=== PATIENT | female | born 1950 | race Caucasian/White ===

== ENCOUNTER → 2020-03-04 13:12 | Outpatient (CLI) | payer MEDICARE, SELFPAY ==
--- NOTE | ~2020-03-04 | MM_ITS ---
EXAMINATION: MM screening claudio BI w candi HISTORY: Screening TECHNIQUE: Craniocaudal and mediolateral oblique 3-D tomosynthesis images were obtained and synthetic 2-D images were generated. CAD analysis was submitted and interpreted. COMPARISON: Comparison to multiple prior studies sequentially, with oldest reviewed study dated 04/30. BREAST PARENCHYMAL COMPOSITION: The breasts are heterogeneously dense, which may obscure small masses . FINDINGS: There is no evidence of suspicious mass, calcification, or architectural distortion to sugg est malignancy in either breast. There has been no suspicious interval change. IMPRESSION: 1. No mammographic evidence of malignancy. 2. Recommend routine screening mammography in one year. BI-RADS Category 1: Negative Reviewed, dictated and finalized at location A.
== END ==
PROVIDERS: PCP Internal Medicine; Visit Provider Obstetrics & Gynecology
DX: Z12.31 Encounter for screening mammogram for malignant neoplasm of breast (principal)
CPT/HCPCS: 77063; 77067

== ENCOUNTER → 2021-03-30 15:52 | Outpatient (CLI) | payer MEDICARE, SELFPAY ==
--- NOTE | ~2021-03-30 | MM_ITS ---
EXAMINATION: MM screening claudio BI w candi HISTORY: Screening TECHNIQUE: Craniocaudal and mediolateral oblique 3-D tomosynthesis images were obtained and synthetic 2-D images were generated. CAD analysis was submitted and interpreted. COMPARISON: Comparison to multiple prior studies sequentially, with oldest reviewed study dated 07/16. BREAST PARENCHYMAL COMPOSITION: The breasts are heterogenously dense, which may obscure small masses. FINDINGS: There is no evidence of suspicious mass, calcification, or architectural distortion to sugg est malignancy in either breast. There has been no suspicious interval change. IMPRESSION: 1. No mammographic evidence of malignancy. 2. Recommend routine screening mammography in one year. BI-RADS Category 1: Negative Reviewed, dictated and finalized at location A.
== END ==
PROVIDERS: PCP Internal Medicine; Visit Provider Obstetrics & Gynecology
DX: Z12.31 Encounter for screening mammogram for malignant neoplasm of breast (principal)
CPT/HCPCS: 77063; 77067

== ENCOUNTER → 2022-04-01 10:10 | Outpatient (CLI) | payer MEDICARE, SELFPAY ==
--- NOTE | ~2022-04-01 | MM_ITS ---
EXAMINATION: MM screening claudio BI w candi HISTORY: Screening TECHNIQUE: Craniocaudal and mediolateral oblique 3-D tomosynthesis images were obtained and synthetic 2-D images were generated. CAD analysis was submitted and interpreted. COMPARISON: No prior mammogram is available for comparison at this institution. BREAST PARENCHYMAL COMPOSITION: There are scattered areas of fibroglandular density. FINDINGS: There is no evidence of suspicious mass, calcification, or architectural distortion to sugg est malignancy in either breast. There has been no suspicious interval change. IMPRESSION: 1. No mammographic evidence of malignancy. 2. Recommend routine screening mammography in one year. BI-RADS Category 1: Negative Reviewed, dictated and finalized at location A.
== END ==
PROVIDERS: PCP Internal Medicine; Visit Provider Obstetrics & Gynecology
DX: Z12.31 Encounter for screening mammogram for malignant neoplasm of breast (principal)
CPT/HCPCS: 77063; 77067

== ENCOUNTER → 2023-01-24 10:48 | Outpatient (CLI) | payer MEDICARE, SELFPAY ==
--- NOTE | ~2023-01-24 | DEXA_ITS ---
Bone Density Report Name: POLLO MENDOZA Age: 72 Sex: Female Ethnicity: White Date of : 1950 Indication: postmenopausal; screening for osteoporosis; asthma or emphysema; Referring Provider: DMITRI, SALMA Study: Bone densitometry was performed. Exam Date: January 24, 2023 Accession number: [id number] Bone Density: Region BMD T-score Z-score Classification AP Spine (L1-L4) 0.925 -1.1 1.0 Osteopenia Femoral Neck (Left) 0.745 -0.9 0.9 Normal Total Hip (Left) 1.023 0.7 2.2 Normal Femoral Neck (Right) 0.791 -0.5 1.3 Normal Total Hip (Right) 0.984 0.3 1.9 Normal Total Hip Mean 1.004 0.5 2.1 Normal World Health Organization criteria for BMD impression classify patients as: Normal (T-score at or above -1.0), Osteopenia (T-score between -1.0 and -2.5), or Osteoporosis (T-score at or below -2.5). 10-year Fracture Risk(1): Major Osteoporotic Fracture 8.0% Hip Fracture 0.8% Reported Risk Factors: [place] (), Neck BMD=0.745, BMI=35.1 (1) FRAX(R) Version 3.08. Fracture probability calculated for an untreated patient. Fracture probability may be lower if the patient has received treatment. Previous Exams: Region Exam Age BMD T-score BMD Change BMD Change Date g/cm2 vs Baseline vs Previous AP Spine(L1-L4) 01/24/2023 72 0.925 -1.1 -0.061* -0.061* 02/19/2009 58 0.985 -0.6 Total Hip(Left) 01/24/2023 72 1.023 0.7 -0.056* -0.056* 02/19/2009 58 1.079 1.1 Total Hip(Right) 01/24/2023 72 0.984 0.3 -0.020 -0.020 02/19/2009 58 1.004 0.5 *Denotes significance at 95% confidence level, LSC for AP Spine = 0.022 g/cm2, LSC for Total Hip = 0.027 g/cm2 Clinical Information Provided by Patient: Has used the following medications: Vitamin D Has the following medical conditions: Asthma or Emphysema Patient maximum height was 65.5 Menopause Age: 57 No regular weight bearing exercise Drinks caffeinated beverages Onset of menses at age 14 Number of children 2 Impression: The patient has low bone mass, based on the Total Spine T-score. The patient has an estimated ten-year risk of hip fracture of 0.8% and an estimated ten-year risk of major fracture of 8%, based on the WHO FRAX algorithm. The BMD for the AP Spine(L1-L4) decreased, changing by -0.061 since the last DXA exam. The BMD for the Total Hip(Left) decreased, changing by -0.056 since the last DXA exam. Disc
== END ==
PROVIDERS: PCP Internal Medicine; Visit Provider Internal Medicine
DX: Z78.0 Asymptomatic menopausal state (principal); M85.88 Other specified disorders of bone density and structure, other site
CPT/HCPCS: 77080

== ENCOUNTER → 2023-04-04 07:00 | Outpatient (CLI) | payer MEDICARE, SELFPAY ==
--- NOTE | ~2023-04-04 | MM_ITS ---
EXAMINATION: MM screening claudio BI w candi HISTORY: Screening TECHNIQUE: Craniocaudal and mediolateral oblique 3-D tomosynthesis images were obtained and synthetic 2-D images were generated. CAD analysis was submitted and interpreted. COMPARISON: Comparison to multiple prior studies sequentially, with oldest reviewed study dated 01/06. BREAST PARENCHYMAL COMPOSITION: There are scattered areas of fibroglandular density. FINDINGS: There is no evidence of suspicious mass, calcification, or architectural distortion to sugg est malignancy in either breast. There has been no suspicious interval change. IMPRESSION: 1. No mammographic evidence of malignancy. 2. Recommend routine screening mammography in one year. BI-RADS Category 1: Negative Reviewed, dictated and finalized at location A. 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
== END ==
PROVIDERS: PCP Obstetrics & Gynecology; Visit Provider Internal Medicine
DX: Z12.31 Encounter for screening mammogram for malignant neoplasm of breast (principal)
CPT/HCPCS: 77063; 77067

== ENCOUNTER 2024-06-06 15:23 | Outpatient (CLI) | payer MEDICARE, SELFPAY ==
--- NOTE | ~2024-06-06 | MM_ITS ---
EXAMINATION: MM screening claudio BI w candi HISTORY: Screening TECHNIQUE: Craniocaudal and mediolateral oblique 3-D tomosynthesis images were obtained and synthetic 2-D images were generated. CAD analysis was submitted and interpreted. COMPARISON: Comparison to multiple prior studies sequentially, with oldest reviewed study dated 12/14. BREAST PARENCHYMAL COMPOSITION: Not dense: There are scattered areas of fibroglandular density. FINDINGS: There are stable benign-appearing bilateral breast calcifications. There is no evidence of suspicious mass, calcification, or architectural distortion to suggest malignancy in either breast. T here has been no suspicious interval change. IMPRESSION: 1. No mammographic evidence of malignancy. 2. Recommend routine screening mammography in one year. BI-RADS Category 2: Benign finding(s). Reviewed, dictated and finalized at location B. 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
== END 2024-06-06 15:24 | disposition home or self-care (01) ==
LOC: MICIMG 15:26
PROVIDERS: PCP Family Medicine; Visit Provider Obstetrics & Gynecology
DX: Z12.31 Encounter for screening mammogram for malignant neoplasm of breast (principal)
CPT/HCPCS: 77063; 77067

== ENCOUNTER 2024-09-17 14:10 | Outpatient (CLI) | payer MEDICARE, SELFPAY ==
--- NOTE | ~2024-09-17 | US_ITS ---
Pelvic ultrasound. Clinical History: Pelvic pain Technique: Realtime transabdominal and transvaginal scanning of the pelvis was performed. Color flow Doppler and Doppler spectral analysis were performed. Findings: The uterus is anteverted. The endometrial stripe has a thickness of 6 mm. No focal mass is identified. The right ovary is not visualized. No significant right ovarian or adnexal mass is seen. The left ovary measures 1.7 x 1.2 x 1.2 cm. No significant left ovarian or adnexal mass is seen. There is no evidence of free fluid in the cul de sac. Impression: Endometrium is upper limits of normal in thickness given patient age. Right ovary not visualized. Reviewed, dictated and finalized at location . Impression: Endometrium is upper limits of normal in thickness given patient age. Right ovary not visualized.
== END 2024-09-17 14:11 | disposition home or self-care (01) ==
LOC: MICIMG 14:12
PROVIDERS: PCP Family Medicine; Visit Provider Obstetrics & Gynecology
DX: R10.2 Pelvic and perineal pain (principal)
CPT/HCPCS: 76830; 76856

== ENCOUNTER 2024-09-19 14:43 | Outpatient (CLI) | payer MEDICARE, SELFPAY ==
[2024-09-19 15:49] LABS: Hemoglobin 13.9 g/dL (12.0-15.0); Mean Corpuscular HGB Conc 33.1 g/dl (32-36); Mean Corpuscular Hemoglobin 30.3 pg (26-34); Mean Corpuscular Volume 91.5 fl (80-100); Mean Platelet Volume 10.5 fl (7.4-10.4); Platelet Count Result 299 k/mm3 (150-375); Red Blood Count 4.59 M/mm3 (4.2-5.4); Red Cell Distribution Width 12.8 % (11.5-14.5); White Blood Count 7.7 K/mm3 (4.5-10.0)
[2024-09-19 16:06] LABS: Anion Gap 10 mmol/L (4-12); Blood Urea Nitrogen 9 mg/dL (7-17); Calcium 9.2 mg/dL (8.4-10.2); Carbon Dioxide 27 mmol/L (22-30); Chloride 107 mmol/L (98-107); Estimated Glomerular Filt Rate > 60; Glucose 96 mg/dL (65-110); Potassium 4.2 mmol/L (3.4-5.0); Sodium 144 mmol/L (137-145)
--- OUTSIDE RECORDS SUMMARY | 2024-09-19 16:50 | XMS_ITS | Clinical Summary ---
Author Organization [facility] [place] [address] Address [address] [place] [address] Care Team Providers Care Lens Edge Grinder Machine Name Role Phone Rohith Forbes MD Primary Care Provider [phone]- [phone] Allergies Active Allergy Reactions Criticality Noted Date Comments Carvedilol Itching Low 11/02/2022 Levofloxacin Other (See comments) Low 07/17/2019 Penicillamine Rash Medium 07/17/2019 Sulfa (Sulfonamide Antibiotics) Rash Medium 06/30 Medications atorvastatin (LIPITOR) 10 mg tablet 1 tablet (10 mg total) daily 07/10/2019 Active fluticasone furoate-vilante rol (BREO ELLIPTA) 100-25 mcg/dose diskus inhaler 1 puff daily Active montelukast (SINGULAIR) 10 mg tablet 1 tablet daily 05/29/2019 Active olmesartan-hydr ochlorothiazide (BENICAR HCT) 40-12.5 mg per tablet 1 tablet daily 05/24/2019 Active omeprazole (PriLOSEC) 20 mg capsule 1 capsule (20 mg total) daily 07/10/2019 Active albuterol HFA (ProAir HFA) 90 mcg/actuation inhaler 2 puffs every 8 hours Active cetirizine (ZyrTEC) 10 mg tablet Take 1 tablet (10 mg total) by mouth daily Active multivitamin capsule Take 1 capsule by mouth daily Active cholecalciferol (VITAMIN D-3) 5,000 unit capsule Take 5,000 Units by mouth daily Active furosemide (LASIX) 20 mg tablet Take 1 tablet (20 mg total) by mouth daily as needed 10/19/2022 Active metoprolol XL (TOPROL-XL) 25 mg extended release tablet TAKE 1/2 TABLET BY MOUTH EVERY DAY IN THE MORNING 10/19/2022 Active irbesartan (AVAPRO) 300 mg tablet 09/02/2022 Active Active Problems Problem Noted Date Diagnosed Date Abnormal electrocardiogram 07/17/2019 Medical History Medical History Date Comments Hypertension Hyperlipidemia Family History Relation Name Status Comments Father (Age 86) STROKE Mother Alive Social History Tobacco Use Types Packs/Day Years Used Date Smoking Tobacco: Never Smokeless Tobacco: Never Tobacco Cessation:Counseling Given: Not Answered Alcohol Use Standard Drinks/Week Comments Never 0 (1 standard drink = 0.6 oz pur e alcohol) AUDIT-C Answer Date Recorded Frequency of Alcohol Consumption Never 07/17/2019 Average Number of Drinks Not on file 020 Frequency of Binge Drinking Not on file 06/30 Personal Safety Answer Date Recorded Getting School Help Needed Not on file 07/30 Comments Unknown Sex and Gender Information Value Date Recorded Sex Assigned at Not on file 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 Gender Identity Not on file Sexual Orientation Not on file Obstetrics History Last Filed Vital Signs Vital Sign Reading Time Taken Comments Blood Pressure 138/90 11/02/2022 11:14 AM CDT Pulse 104 11/02/2022 11:14 AM CDT Temperature - - Respiratory Rate - - Oxygen Saturation 95% 11/02/2022 11:14 AM CDT Inhaled Oxygen Concentration - - Weight 97.5 kg (215 lb) 11/02/2022 11:14 AM CDT Height 165.1 cm (5' 5 ) 11/02/2022 11:14 AM CDT Body Mass Index 35.78 11/02/2022 11:14 AM CDT Plan of Treatment Health Maintenance Due Date Last Done Comments Breast Cancer Screening-Mammogram 1950 Colon Cancer Screening-Colonoscopy 1950 Depression Screening 1950 Fall Risk Assessment 1950 Hepatitis C Screening 1950 Hepatitis B Screening 1970 Well Visit 65+ 2017 Pneumococcal vaccine 65+ (2 of 2 - PPSV23) 11/19/2020 09/24/2020, 09/25/2019 Osteoporosis Screening-Bone Density Scan 05/24/2021 05/24/2019 Influenza Vaccine (#1) 2024 0, 02/27/2019, 03/17/2018, Additional history exists DTaP/Tdap/Td Vaccine (2 - Td or Tdap) 09/24/2029 09/25/2019 Zoster Vaccine Completed 07/14/2018, 06/30, 01/24/2018 Insurance [employer] MEDICARE SUPPLEMENT INSURANCE MEDICARE Care Teams Lens Edge Grinder Machine Relationship Specialty Start Date End Date Rohith Forbes MD [address] [facility] [address] [place] [address] PCP - General Internal Medicine 06/08/19
--- OUTSIDE RECORDS SUMMARY | 2024-09-19 16:50 | XMS_ITS | Referral Summary ---
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 [address] [place] [address] PCP - General Internal Medicine 06/08/19
--- OUTSIDE RECORDS SUMMARY | 2024-09-19 16:50 | XMS_ITS | Clinical Summary ---
Author Organization [facility] Address [address] [place] [id number] Care Team Providers Care Supervisor Drying And Softening Name Role Phone Jackson Greenfield MD Primary Care Provider [phone] Allergies Active Allergy Reactions Criticality Noted Date Comments Carvedilol Itching Low 11/02/2022 Cephalosporins Itching 08/22/2024 Levofloxacin Other (see comment) Low 07/17/2019 Penicillamine Rash Medium 07/17/2019 Sulfa Antibiotics Rash Medium 07/17/2019 Medications ondansetron (ZOFRAN-ODT) 4 MG disintegrating tabletIndications:E pigastric pain Take 1 tablet (4 mg total) by mouth every 8 (eight) hours as needed for Nausea. 12 tablet 5 Active nitrofurantoin, macrocrystal-monohy drate, (MACROBID) 100 MG capsule Take 1 capsule (100 mg total) by mouth 2 (two) times daily for 7 days. 14 capsule 5 08/30/19 25 Encounters Date Type Department Care Team Description 08/22/2024 8:40 PM CDT - 08/22/2024 11:32 PM CDT Emergency [facility] [place] [address] Vita Wood DO Vomiting; Abdominal Pain Discharge Disposition: Home or Self Care (Routine Discharge) 08/22/2024 Travel from Last 3 Months Social History Tobacco Use Types Packs/Day Years Used Date Smoking Tobacco: Never Smokeless Tobacco: Never Tobacco Cessation:Counseling Given: Not Answered Comments Unknown Sex and Gender Information Value Date Recorded Sex Assigned at Female 08/22/2024 7:48 PM CDT Legal Sex Female 7:41 PM [employer] Gender Identity Not on file Sexual Orientation Not on file Last Filed Vital Signs Vital Sign Reading Time Taken Comments Blood Pressure 144/95 08/22/2024 10:15 PM CDT Pulse 105 08/22/2024 7:43 PM CDT Temperature 37 C (98.6 F) 08/22/2024 7:43 PM CDT Respiratory Rate 18 08/22/2024 7:43 PM CDT Oxygen Saturation 92% 08/22/2024 10:15 PM CDT Inhaled Oxygen Concentration - - Weight 98.4 kg (217 lb) 08/22/2024 7:43 PM CDT Height 165.1 cm (5' 5 ) 08/22/2024 7:43 PM CDT Body Mass Index 36.11 08/22/2024 7:43 PM CDT Plan of Treatment Health Maintenance Due Date Last Done Comments Colorectal Cancer Screening Colonoscopy (10 Years) 1952 Hepatitis C 1970 DTaP, Tdap and Td Vaccines (1 - Tdap) 1971 Mammogram Screening 1992 Pneumococcal Vaccine: 50+ Years (1 of 1 - PCV) 2002 Annual Medicare Wellness Visit 2017 Dexa Scan (General) 2017 COVID-19 Vaccine ( season) 2024 04/18/2022, 04/21/2021, 08/11/2020, Additional history exists RSV Immunization or 60+ Years (1 - 1-dose 75+ series) 2027 Zoster Vaccines Completed 07/14/2018, 01/24/2018 Meningococcal B Vaccine Aged Out No l onger eligible based on patient's age to complete this topic Meningococcal Vaccine Aged Out No toma lukas eligible based on patient's age to complete this topic RSV Immunizations Under 20 Months Aged Out No longer eligible based on patient's age to complete this topic Procedures Procedure Name Priority Date/Time Associated Diagnosis Comments CT ABD+PEL W CON STAT 08/22/2024 9:23 PM CDT HC URINALYSIS AUTO W/O MICRO STAT 08/22/2024 9:00 PM CDT LACTIC ACID W REFLEX (SEPSIS) STAT 08/22/2024 8:53 PM CDT LIPASE STAT 08/22/2024 8:53 PM CDT COMPREHENSIVE METABOLIC PANEL STAT 08/22/2024 8:53 PM CDT CBC W/DIFF AUTOMATED STAT 08/22/2024 8:53 PM CDT from Last 3 Months Results * CT ABD+PEL W IV CON ONLY (08/22/2024 9:23 PM CDT) Anatomical Region Laterality Modality Abdomen Computed Tomogra phy 08/22/2024 9:32 PM CDT Impressions 08/22/2024 9:54 PM CDT IMPRESSION: 1. Moderate hiatal hernia, with the gastric fundus and proximal gastric body in subdiaphragmatic position and the distal gastric body/antrum in the hernia. Liquid present in the distal esophagus and proximal stomach, with mild gaseous distention of the herniated distal gastric body and essentially evacuated gastric antrum/proximal small bowel. Overall pattern could represent gastric outlet obstruction in the hernia. 2. Trace urothelial enhancement present in the urinary bladder could represent acute cystitis. Recommend correlation with urinalysis. 3. Colonic diverticulosis. 4. Cholelithiasis. 5. Endometrium is in excess of normal limits for patient age, measuring up to 1.1 cm. Recommend nonemergent further evaluation with sonography to exclude malignancy. Referred By: Interpreted By: Seun Alas MD, 08/22/2024 9:32 PM Narrative 08/22/2024 9:54 PM CDT [facility] [address] [place], [place] [address] INDICATION: Abdominal pain COMPARISON: None TECHNIQUE: CT images of the abdomen and pelvis were obtained following the administration of IV contrast. Radiation dose reduction technique utilized. FINDINGS: Limited visualization of the lower thorax reveals lung bases free of consolidation. Moderate hiatal hernia, with a partially intrathoracic stomach including the distal gastric body as well as the antrum. Liquid is present in the somewhat dilated distal esophagus. Gastric contents in the proximal gastric body and gastric fundus appear within normal limits. Mild gaseous distention of the distal gastric body, with the antrum and proximal duodenum evacuated. Stool is present in the colon and rectum. Diverticulosis, most pronounced in the descending and sigmoid colon. Small bowel is mostly evacuated. Normal size liver. No suspicious hepatic lesion. Cholelithiasis. Main portal vein, splenic vein, SMV, and SMA enhance. Mild atherosclerosis of the abdominal and pelvic vasculature. No retroperitoneal lymphadenopathy. No free gas in the abdomen or pelvis. No mesenteric lymphadenopathy. Normal size spleen. Incidental note of a small splenule. Pancreas within normal limits. Adrenal glands within normal limits. Kidneys enhance symmetrically. Benign-appearing renal cystic foci for which no further follow-up is recommended. No hydronephrosis or hydroureter. Urinary bladder is in postvoid state, limiting evaluation of the wall; trace urothelial enhancement present. Endometrium is in excess of normal limits for patient age, measuring up to 1.1 cm. Incidental note of benign pelvic phleboliths. No pelvic lymphadenopathy or significant free fluid. Chronic degenerative changes of the hips, pubic symphysis, and sacroiliac joints. Chronic multilevel degenerative changes of the spine. Visualized body wall exhibits no acute abnormality. Procedure Note Seun Alas MD - 08/22/[address] [address] INDICATION: Abdominal pain COMPARISON: None TECHNIQUE: CT images of the abdomen and pelvis were obtained following theadministration of IV contrast. Radiation dose reduction techniqueutilized. FINDINGS: Limited visualization of the lower thorax reveals lung bases free ofconsolidation. Moderate hiatal hernia, with a partially intrathoracic stomach includingthe distal gastric body as well as the antrum. Liquid is present in thesomewhat dilated distal esophagus. Gastric contents in the proximalgastric body and gastric fundus appear within normal limits. Mild gaseousdistention of the distal gastric body, with the antrum and proximalduodenum evacuated. Stool is present in the colon and rectum. Diverticulosis, most pronouncedin the descending and sigmoid colon. Small bowel is mostly evacuated. Normal size liver. No suspicious hepatic lesion. Cholelithiasis. Mainportal vein, splenic vein, SMV, and SMA enhance. Mild atherosclerosis of the abdominal and pelvic vasculature. Noretroperitoneal lymphadenopathy. No free gas in the abdomen or pelvis. No mesenteric lymphadenopathy.Normal size spleen. Incidental note of a small splenule. Pancreas withinnormal limits. Adrenal glands within normal limits. Kidneys enhance symmetrically. Benign-appearing renal cystic foci forwhich no further follow-up is recommended. No hydronephrosis orhydroureter. Urinary bladder is in postvoid state, limiting evaluation of the wall;trace urothelial enhancement present. Endometrium is in excess of normal limits for patient age, measuring up to1.1 cm. Incidental note of benign pelvic phleboliths. No pelviclymphadenopathy or significant free fluid. Chronic degenerative changes of the hips, pubic symphysis, and sacroiliacjoints. Chronic multilevel degenerative changes of the spine. Visualized body wall exhibits no acute abnormality. IMPRESSION: 1. Moderate hiatal hernia, with the gastric fundus and proximal gastricbody in subdiaphragmatic position and the distal gastric body/antrum inthe hernia. Liquid present in the distal esophagus and proximal stomach,with mild gaseous distention of the herniated distal gastric body andessentially evacuated gastric antrum/proximal small bowel. Overall patterncould represent gastric outlet obstruction in the hernia. 2. Trace urothelial enhancement present in the urinary bladder couldrepresent acute cystitis. Recommend correlation with urinalysis. 3. Colonic diverticulosis. 4. Cholelithiasis. 5. Endometrium is in excess of normal limits for patient age, measuringup to 1.1 cm. Recommend nonemergent further evaluation with sonography toexclude malignancy. Referred By: Interpreted By: Seun Alas MD, 08/22/2024 9:32 PM Branden Eng PA-C CT Final Resul t * (ABNORMAL) URINALYSIS (08/22/2024 9:00 PM CDT) SPECIMEN TYPE URINE CLEAN CATCH 08/22/2024 9:01 PM CDT [facility] COLOR (U) LIGHT YELLOW 08/22/2024 9:15 PM CDT [facility] TRANSPARENCY CLEAR 08/22/2024 9:15 PM CDT [facility] SPECIFIC GRAVITY (U) 1.021 1.001 - 1.030 08/22/2024 9:15 PM CDT [facility] U PH 7.0 5.0 - 9.0 08/22/2024 9:15 PM CDT [facility] LEUKOCYTES (U) 75(A) NEGATIVE 08/22/2024 9:15 PM CDT [facility] NITRITES 1+(A) NEGATIVE 08/22/2024 9:15 PM CDT [facility] PROTEIN RANDOM (U) NEGATIVE <30 MG/DL 08/22/2024 9:15 PM CDT [facility] GLUCOSE (U) NORMAL NORMAL MG/DL 08/22/2024 9:15 PM CDT [facility] KETONES MG/DL (U) 20(A) NEGATIVE MG/DL 08/22/2024 9:15 PM CDT [facility] UROBILINOGEN NORMAL NORMAL MG/DL 08/22/2024 9:15 PM CDT [facility] BILIRUBIN (U) NEGATIVE NEGATIVE MG/DL 08/22/2024 9:15 PM CDT [facility] BLOOD (U) NEGATIVE NEGATIVE 08/22/2024 9:15 PM CDT [facility] WBC/HPF 6(H) <6 /HPF 08/22/2024 9:15 PM CDT [facility] RBC/HPF 7(H) <6 /HPF 08/22/2024 9:15 PM CDT [facility] SQUAMOUS EPITHELIALS RARE /HPF 08/22/2024 9:15 PM CDT [facility] URINE SPECIMEN OBTAINED BY CLEAN CATCH PROCEDURE / Unknown 08/22/2024 9:00 PM CDT us Branden Eng PA-C URINE ORDERABLES Final Resu lt Performing Organization Address City/[facility]/ZIP Co de Phone Number [facility] [address] [place] [address], [place] [phone] * LACTIC ACID W REFLEX (SEPSIS) (08/22/2024 8:53 PM CDT) LACTIC ACID VENOUS 1.1 0.4 - 2.0 MMOL/L 08/22/2024 9:30 PM CDT [facility] 08/22/2024 8:53 PM CDT Branden Eng PA-C LABORATORY Final Resul t Performing Organization Address [facility] Co de Phone Number [facility] [address] [place] [address], [place] [phone] * (ABNORMAL) COMPREHENSIVE METABOLIC PANEL (08/22/2024 8:53 PM CDT) GLUCOSE 128(H) 70 - 99 MG/DL 08/22/2024 9:30 PM CDT [facility] BUN 11 7 - 18 MG/DL 08/22/2024 9:30 PM CDT [facility] CREATININE S/P/B 0.92 0.55 - 1.02 MG/DL 08/22/2024 9:30 PM CDT [facility] SODIUM S/P/B 139 136 - 145 MMOL/L 08/22/2024 9:30 PM CDT [facility] POTASSIUM S/P/B 3.8 3.5 - 5.1 MMOL/L 08/22/2024 9:30 PM CDT [facility] CHLORIDE S/P/B 107 97 - 115 MMOL/L 08/22/2024 9:30 PM CDT [facility] CO2 24.9 21 - 32 MMOL/L 08/22/2024 9:30 PM CDT [facility] CALCIUM S/P/B 10.1 8.5 - 10.1 MG/DL 08/22/2024 9:30 PM CDT [facility] BILIRUBIN TOTAL S/P/B 0.5 0.2 - 1.2 MG/DL 08/22/2024 9:30 PM CDT [facility] Comment: THIS ASSAY IS NOT RECOMMENDED FOR PATIENTS UNDERGOING TREATMENT WITH ELTROMBOPAG DUE TO THE POTENTIAL FOR FALSELY ELEVATED RESULTS. TOTAL PROTEIN S/P/B 7.7 6.4 - 8.2 G/DL 08/22/2024 9:30 PM CDT [facility] ALBUMIN S/P/B 4.1 3.4 - 5.0 G/DL 08/22/2024 9:30 PM CDT [facility] AST 20 15 - 37 U/L 08/22/2024 9:30 PM CDT [facility] ALT 32 14 - 55 U/L 08/22/2024 9:30 PM CDT [facility] ALKALINE PHOSPHATASE S/P/B 101 50 - 136 U/L 08/22/2024 9:30 PM CDT [facility] ANION GAP 7.1 2 - 10 MMOL/L 08/22/2024 9:30 PM CDT [facility] BUN CREATININE RATIO 11.9 - 08/22/2024 9:30 PM CDT [facility] A/G RATIO 1.1 1.0 - 2.0 RATIO 08/22/2024 9:30 PM CDT [facility] GFR ESTIMATE 66(L) >90 ML/MIN/1.7 3 M2 08/22/2024 9:30 PM CDT [facility] Comment: NOTE: eGFR is not calculated for patients <18 years of age or gender unknown. This is an estimated GFR calculation using the new CKD EPI creatinine equation without race and so does not require a correction factor for race. This estimated GFR should not be used for calculating drug doses. 08/22/2024 8:53 PM CDT us Branden Eng PA-C LABORATORY Final Resul t [facility] [address] [place] [address], [place] [phone] * (ABNORMAL) CBC W/DIFF AUTOMATED (08/22/2024 8:53 PM CDT) WBC 14.84(H) 4.5 - 11.0 x10'3/uL 08/22/2024 9:16 PM CDT [facility] RBC 5.25 4.20 - 5.40 x10'6/uL 08/22/2024 9:16 PM CDT [facility] HGB 15.5 12.0 - 16.0 G/DL 08/22/2024 9:16 PM CDT [facility] HCT 46.2 38.0 - 48.0 % 08/22/2024 9:16 PM CDT [facility] MCV 88.0 81.0 - 99.0 FL 08/22/2024 9:16 PM CDT [facility] MCH 29.5 27.0 - 31.0 PG 08/22/2024 9:16 PM CDT [facility] MCHC 33.5 32.0 - 36.0 G/DL 08/22/2024 9:16 PM CDT [facility] RDW 12.7 11.5 - 14.5 % 08/22/2024 9:16 PM CDT [facility] PLT 339 130 - 400 x10'3/uL 08/22/2024 9:16 PM CDT [facility] MPV 10.0 9.3 - 12.2 FL 08/22/2024 9:16 PM CDT [facility] DIFFERENTIAL TYPE AUTOMATED DIFFERENTIAL 08/22/2024 9:16 PM CDT [facility] NEUTROPHILS % 84.7 % 08/22/2024 9:16 PM CDT [facility] LYMPHOCYTES % 10.4 % 08/22/2024 9:16 PM CDT [facility] MONOCYTES % 3.8 % 08/22/2024 9:16 PM CDT [facility] EOSINOPHILS 0.3 % 08/22/2024 9:16 PM CDT [facility] BASOPHILS 0.5 % 08/22/2024 9:16 PM CDT [facility] IMMATURE GRANS % 0.3 % 08/23/19 9:16 PM CDT [facility] ABS. NEUTROPHILS 12.56(H) 1.80 - 7.70 x10'3/uL 08/22/2024 9:16 PM CDT [facility] ABS. LYMPHOCYTES 1.54 1.00 - 4.80 x10'3/uL 08/22/2024 9:16 PM CDT [facility] ABS. MONOCYTES 0.57 0.24 - 0.86 x10'3/uL 08/22/2024 9:16 PM CDT [facility] ABS. EOSINOPHILS 0.04 0.04 - 0.36 x10'3/uL 08/22/2024 9:16 PM CDT [facility] ABS. BASOPHILS 0.08 0.01 - 0.08 x10'3/uL 08/22/2024 9:16 PM CDT [facility] ABS. IMMATURE GRANULOCYTES 0.05 0.00 - 0.49 x10'3/uL 08/22/2024 9:16 PM CDT [facility] 08/22/2024 8:53 PM CDT Branden Eng PA-C LABORATORY Final Resul t [facility] [address] [place] [address], [place] [phone] * LIPASE (08/22/2024 8:53 PM CDT) LIPASE 59 13 - 75 UNITS/L 08/22/2024 9:30 PM CDT [facility] 08/22/2024 8:53 PM CDT Branden Eng PA-C LABORATORY Final Resul t Performing Organization Address [facility] Co de Phone Number [facility] [address] [place] [address], [place] [phone] from Last 3 Months Insurance MEDICARE Care Teams Supervisor Drying And Softening Relationship Specialty Start Date End Date Jackson Greenfield MD [address] [place] [address] PCP - General FAMILY PRACTICE 08/22/24
--- OUTSIDE RECORDS SUMMARY | 2024-09-19 16:50 | XMS_ITS | Data Portability ---
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 Studies ordered as below. Discussed plan with patient/careg iver, who expressed understanding . Follow up as noted below. Not available 05/04/2022 15:58:58 07/12/2022 07/12/2022 Patient presented for follow up. Studies ordered as below. Discussed plan with patient/careg iver, who expressed understanding . Follow up as noted below. Not available 07/12/2022 10:30:55 10/19/2022 10/19/2022 Patient presented for follow up. Studies ordered as below. Discussed plan with patient/careg iver, who expressed understanding . Follow up as noted below. [email or web address] Not available 10/19/2022 09:25:56 06/06/2023 06/06/2023 Patient presented for follow up. Studies ordered as below. Discussed plan with patient/careg iver, who expressed understanding . Follow up as noted below. [email or web address] Not available 06/06/2023 16:45:38 Plan of Treatment Reminders Order Date Submit Date Provider Last Modified By Organization Details Last Modified Time Details Appointments None recorded. Lab lipid panel w/ direct LDL, serum 2023 024 [facility] [employer] [facility], [address], [place], [address], 04:03:15 TSH, serum or plasma 2023 024 [facility], [address], [address], [place], [address], 4 04:03:16 CMP, serum or plasma 2023 024 [facility], [address], [address], [place], [address], 4 04:03:15 CBC w/ auto diff 2023 024 [facility], [address], [address], [place], [address], 4 04:03:15 HbA1c (hemoglobi n A1c), blood 2023 024 [employer] [employer] [facility], [address], [address], [place], [address], 4 04:04:42 vitamin D, 25-hydroxy , total, serum 2023 024 [facility], [address], [address] [place], [place], [address], 4 04:03:16 CMP, serum or plasma 2022 023 [facility], [address], [address], [place], [address], 3 05:42:10 CBC w/ auto diff 2022 023 [facility], [address], [address], [place], [address], 3 05:41:47 noninvasiv e colorectal cancer DNA + occult blood screening, QL, stool 2022 023 [employer] (Cologuard Orders Only), [address], [address], [place], [address], 3 13:23:13 lipid panel w/ direct LDL, serum [address] [facility], [address], [address], [place], [address], 3 05:28:03 TSH, serum or plasma [address] [facility], [address], [address], [place], [address], 3 10:01:51 HbA1c (hemoglobi n A1c), blood [address] [address] [facility], [facility] [address], [address], [place], [address], 3 10:01:52 CMP, serum or plasma [address] [facility], [facility], [place], [address], 3 03:46:55 CBC w/ auto diff [address] [facility], [facility] [address], [address], [place], [address], 3 03:46:56 vitamin D, 25-hydroxy , total, serum [address] [facility], [address], [address], [place], [address], 3 03:46:57 ESR (erythrocy te sedimentat ion rate), blood [address], [place], [address], 2 12:19:12 magnesium, serum or plasma 2021 022 [facility] [employer] [facility], [address], [address], [place], [address], 5 09:12:45 D-dimer, quant, plasma 2021 022 [facility] [employer] [facility], [address], [address], [place], [address], 5 09:12:45 Referral optometris t referral 2023 024 [facility], [address] [place], [address], 4 04:02:06 optometris t referral 2022 023 [facility], [address] [place], [address], 3 05:35:15 optometris t referral 2022 023 [facility], [address] [place], [address], 3 05:21:[address] referral 2022 023 [place] Moiz Garner MD, [address], [place], [address], 3 09:03:04 optometris t referral 2022 023 [facility], [address] [place], [address], 5 11:38:31 Procedures None recorded. Surgeries None recorded. Imaging electrocar diogram 2023 024 [facility], [facility], [address], [place], [address], 4 17:58:05 XR, chest, 2 view 2023 024 [facility], [address], [address], [place], [address], 4 04:04:55 bone density 2022 023 [facility], [address], [place], [address], 3 10:17:35 bone density 2022 023 [facility], [address], [place], [address], 3 05:27:46 electrocar diogram 2021 022 [facility], [facility], [address], [place], [address], 2 17:12:27 Medication Orders doxycyclin e hyclate 100 mg capsule 2023 024 [facility] [id number] [facility], [address] [place] [address], [place], [address], 4 18:42:38 benzonatat e 100 mg capsule 2023 024 [facility] [id number] [facility], [address] [place] [address], [place], [address], 4 18:42:42 prednisone 20 mg tablet 2023 024 [facility] [id number] [facility], [address] [place] [address], [place], [address], 4 17:43:44 nebivolol 2.5 mg tablet 2022 023 [facility] [address] [facility], [address] [place] [address], [place], [address], 3 18:40:32 furosemide 20 mg tablet 2022 023 [facility] [address] [facility], [address], [place], [address], 10:03:50 Coreg 6.25 mg tablet 2021 022 [facility] [id number] [facility], [address], [place], [address], 11:08:14 Patient TargetsNo targets recorded. Patient Instructions Encounter Date Encounter Id Patient Instructions Last Modified By Organization Details Last Modified Time 05/04/2022 [id number] headache: care instructions mshenouda Not available 05/04/2022 16:40:35 07/12/2022 [id number] mammogram: about this test mshenouda Not available 07/12/2022 11:11:28 palpitations: care instructions mshenouda Not available 07/12/2022 11:11:28 controlling your asthma: care instructions mshenouda Not available 07/12/2022 11:11:27 learning about asthma mshenouda Not available 07/12/2022 11:11:27 body mass index: care instructions mshenouda Not available 07/12/2022 11:11:28 learning about healthy weight mshenouda Not available 07/12/2022 11:11:27 10/19/2022 [id number] mammogram: about this test mshenouda Not available 10/19/2022 10:02:12 controlling your asthma: care instructions mshenouda Not available 10/19/2022 10:02:12 learning about asthma mshenouda Not available 10/19/2022 10:02:12 body mass index: care instructions mshenouda Not available 10/19/2022 10:02:11 learning about healthy weight mshenouda Not available 10/19/2022 10:02:11 01/19/2023 [id number] mammogram: about this test mshenouda Not available 01/19/2023 13:23:09 controlling your asthma: care instructions mshenouda Not available 01/19/2023 13:23:09 learning about asthma mshenouda Not available 01/19/2023 13:23:08 spirometry testing* RUFINO Not available 01/19/2023 14:23:46 body mass index: care instructions mshenouda Not available 01/19/2023 13:23:09 learning about healthy weight mshenouda Not available 01/19/2023 13:23:09 living will mshenouda Not available 12/29 13:18:07 06/06/2023 [id number] mammogram: about this test mshenouda Not available 06/06/2023 17:43:38 controlling your asthma: care instructions mshenouda Not available 06/06/2023 17:43:37 learning about asthma mshenouda Not available 06/06/2023 17:43:37 upper respirator y infection (cold): care instructions mshenouda Not available 06/06/2023 17:43:37 body mass index: care instructions mshenouda Not available 06/06/2023 17:43:37 learning about healthy weight mshenouda Not available 06/06/2023 17:43:36 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 Referring Physician: Rohith Rizvi, Internal Medicine, Encounter Date: 07/12/2022 Occupational Health Physician Referral for Galen ign hypertension Referring Physician: Rohith Rizvi Internal Medicine, Encounter Date: 07/12/2022 Occupational Health Physician Referral for Galen ign hypertension Referring Physician: Rohith Rizvi Internal Medicine, Encounter Date: 10/19/2022 Occupational Health Physician Referral for Galen ign hypertension Referring Physician: Rohith Rizvi Internal Medicine, Encounter Date: 01/19/2023 Occupational Health Physician Referral for Galen ign hypertension Referring Physician: Rohith Rizvi Internal Medicine, Encounter Date: 06/06/2023 Results Created Date Observation Date Name Description Value Unit Range Abnormal Flag Note LastModifiedBy Organization Detail LastModifiedTime 05/04/20 22 05/04/2022 HS D DIMER hs D dimer 397 NG{fe u}/mL 0-500 D-Dim er value s less than or equal to 500 ng/mL FEU have a negat simba predi ctive value of >95% for exclu mary jo of deep vein throm bosis and pulmo nary embol ism. In patie nts over 50 (who tend to have highe r elizabeth l basel ine D-Dim er value s), recen t studi es sugge st age-a djust ed D-Dim er cutof f value s (calc ulate d as: age [year s] x 10 ng/mL ) resul t in equiv alent outco mes and no addit ional false negat simba findi ngs. Not Available [facility] (Lab) [address] [facility], [place], [address], 05/04/2022 22:03:43 05/04/20 22 05/04/2022 ERYTH ROCYT E SEDIM ENTAT ION RATE (ESR) sed rate 17 mm/HR 0-20 Not Available [facility] (Main Location) [facility] [address] ,[place], [address], 05/05/2022 12:19:12 05/04/20 22 05/04/2022 MAGNE SIUM magnesium 2.1 mg/dL 1.6-2. 4 Not Available [facility] (Main Location) [facility] [address] ,[place], [address], 05/05/2022 12:19:13 10/28/19 23 10/28/2022 LIPID PANEL , STAND KATE cholesterol, total 147 mg/dL <200 normal Not Available [employer] [address] [address] [place], [address], 10/28/2022 10:01:50 10/28/19 23 10/28/2022 LIPID PANEL , STAND KATE HDL cholesterol 47 mg/dL > or = 50 low Not Available [employer] [address] [address] [place], [address], 10/28/2022 10:01:50 10/28/19 23 10/28/2022 LIPID PANEL , STAND KATE triglyceride s 111 mg/dL <150 normal Not Available [employer] [address] [address] [place], [address], 10/28/2022 10:01:50 10/28/19 23 10/28/2022 LIPID PANEL , STAND KATE LDL-choleste rol 79 mg/dL _(adama c) normal Refer ence range : <100 Chinmay able range <100 mg/dL for prima ry preve ntion ; <70 mg/dL for patie nts with CHD or diabe tic patie nts with > or = 2 CHD risk facto rs. LDL-C is now calcu lated using the Janae n-Hop kins calcu ginger n, which is a valid ated novel metho d provi ding jessa r accur acy than the Fried lizzette equat ion in the estim ation of LDL-C . Janae kim SS et al. KARLI. 2013; 310(1 9): 2061- 2068 (http ://ed ucati on.Qu chauShip It Bag Check. [employer]/f aq/FA Q164) Not Available [employer] [address], [address], 10/28/2022 10:01:50 10/28/19 23 10/28/2022 LIPID PANEL , STAND KATE chol/HDLC ratio 3.1 (calc ) <5.0 normal Not Available [address], [address], 10/28/2022 10:01:50 10/28/19 23 10/28/2022 LIPID PANEL , STAND KATE non HDL cholesterol 100 mg/dL _(adama c) <130 normal For patie nts with diabe suad plus 1 major ASCVD risk facto r, treat ing to a non-H DL-C goal of <100 mg/dL (LDL- C of <70 mg/dL ) is tereso johnson optio n. Not Available [employer] [address], [address], 10/28/2022 10:01:50 10/28/19 23 10/28/2022 TSH TSH 1.16 mIU/L 0.40-4 .50 normal Not Available [employer] [address], [address], 10/28/2022 10:01:51 10/28/19 23 10/28/2022 HEMOG LOBIN A1C hemoglobin A1C 5.5 %_of_ total _HGB <5.7 normal For the purpo se of frankie angel for the prese nce of diabe suad: <5.7% Consi stent with the absen ce of diabe suad 5.7-6 .4% Consi stent with incre ased risk for diabe suad (pred iabet es) > or =6.5% Consi stent with diabe suad This assay resul t is consi stent with a decre ased risk of diabe suad. Curre ntly, no conse nsus exist s regtheresa torrez use of hemog lobin A1c for diagn osis of diabe suad in child rubina. Accor ding to Ameri can Diabe suad Assoc iatio n (ADA) guide lines , hemog lobin A1c <7.0% repre sents optim al contr ol in non-p regna nt diabe tic patie nts. Diffe rent metri cs may apply to speci fic patie nt popul ation s. Stand ards of Medic al Care in Diabe suad(A DA). Not Available [employer] [address] [address] [place], [address], 10/28/2022 10:01:52 01/20/20 23 01/19/2023 anna metry testi ng* Spirometry Not Available [facility], [facility] [address], [place], [address], 01/19/2023 13:13:33 05/04/20 22 06/08/2022 elect rocar diogr am No observ ation record ed. [facility], [facility] [address], [place], [address], 07/12/2022 10:59:50 05/04/20 22 05/04/2022 elect rocar diogr am No observ ation record ed. [facility], [facility] [address], [place], [address], 07/12/2022 10:59:50 01/20/2001/19/2023 anna metry testi ng* No observ ation record ed. [email or web address] [facility], [facility] [address], [place], [address], 01/24/2023 19:08:16 01/29/20 23 01/24/2023 bone densi ty No observ ation record ed. [facility] [address], [place], [address], 01/28/2023 19:15:50 04/04/2004/04/2023 MAMMO , scree jeanne, tomos ynthe sis, bilat eral No observ ation record ed. [facility] [address], [place], [address], 04/04/2023 15:12:24 06/06/19 24 06/06/2023 elect alli floyd am No observ ation record ed. [email or web address] [facility], [facility] [address], [place], [address], 06/06/2023 17:58:05 Result Notes None recorded. Problems Name Problem SNOMED Code Status Onset Date Resolution Date Notes Provider Name and Address Organization Details Recorded Time Body mass index 30+ - obesity 837571098 Active 2018 Not Available [facility] 3 12:57:50 Benign hypertensi on 81439732 Active 2018 Not Available [facility] 12:57:50 Mixed hyperlipid emia 495464491 Active 2018 Not Available [facility] 3 12:57:51 Gastroesop hageal reflux disease without esophagiti s 980710095 Active 2018 Not Available [facility] 3 12:57:50 Asthma 987350477 Active 2018 Not Available [facility] 3 12:57:50 Menopause Active 2018 Not Available [facility] 3 12:57:50 Osteopenia 729067589 Active 2019 Not Available [facility] 3 12:57:51 Vitamin D deficiency 74465363 Active 2019 Not Available [facility] 3 12:57:51 Onychomyco sis of toenails 033171195 Active 2020 Not Available [facility] 3 12:57:51 Long-term drug therapy Active 2021 Not Available [facility] 3 12:57:50 History of SARS-CoV-2 9602678105241 11643 Active 2021 Not Available [facility] 3 12:57:51 Tachycardi a 4306312 Active 2021 Not Available [facility] 3 12:57:51 Problem Notes None recorded. Procedures Surgical History Date Name Laterality Status Provider Name and Address Organization Details Recorded Time Date of Last Mammogram completed Kiesha Kumar [facility] 06/25/2021 10:55:15 Imaging Results Imaging Date Name Status LastModified by Organization Details LastModified Time 06/08/2022 [facility]cardiogram [facility] [employer], [facility] [address], [place], [address], 07/12/2022 10:59:50 05/04/2022 electrocardiogram completed [facility] [address], [place], [address], 07/12/2022 10:59:50 01/19/2023 spirometry testing* completed maria motf [facility] [employer], [facility] [address], [place], [address], 01/24/2023 19:08:16 01/24/2023 bone density completed [facility] [address], [place], [address], 01/28/2023 19:15:50 04/04/2023 MAMMO, screening, tomosynthesis, bilateral active [facility] [address], [place], [address], 04/04/2023 15:12:24 06/06/2023 electrocardiogram completed [email or web address] [facility] [address] [employer], [facility] [address], [place], [address], 06/06/2023 17:58:05 Procedure Notes None recorded. Medical Equipment None Reported. Allergies Allergen ID Allergen Name Allergen Category Reaction Reaction Severity Criticality Documentation Date Start Date Code Code System Note Provider Name and Address Organization Details Recorded Time 85850 carvedilo l medicatio n itching Not available Not available 05/12/2022 31398 RxNorm Not Available Not Available Not Available 8713 penicilla mine medicatio n Not available Not available Not available 05/24/2019 7975 RxNorm Not Available Not Available Not Available 8714 Substance with sulfonami de structure and antibacte rial mechanism of action (substanc e) medicatio n Not available Not available Not available 05/24/2019 90411 8003 SNOMED Not Available Not Available Not Available 8715 Levaquin medicatio n Not available Not available Not available 05/24/2019 43744 2 RxNorm Not Available Not Available Not Available Medications Name Sig Start Date Stop Date Status Note LastModified by Organization Details LastModified Time status covid-19/fl u a-b antigen tst TEST DIRECTED TODAY active Not Available Not Available No t Available carvedilol 6.25 mg tablet TAKE 1 TABLET BY MOUTH TWICE A DAY 07/12 completed Not Available Not Available Not Available doxycycline hyclate 100 mg capsule TAKE 1 CAPSULE BY MOUTH TWICE A DAY 07/14 completed Not Available Not Available Not Available atorvastati n 20 mg tablet TAKE 1 TABLET BY MOUTH EVERYDAY AT BEDTIME active Not Available Not Available No t Available clindamycin HCl 300 mg capsule TAKE 1 CAPSULE BY MOUTH THREE TIMES A DAY UNTIL GONE 07/12 completed Not Available Not Available Not Available atorvastati n 10 mg tablet TAKE 1 TABLET BY MOUTH EVERY DAY 12/29 completed Not Available Not Available Not Available azithromyci n 250 mg tablet 05/24 completed Not Available Not Available Not Available Lidocaine Viscous 2 % mucosal solution 05/24 completed Not Available Not Available Not Available metoprolol succinate ER 50 mg tablet,exte nded release 24 hr active Not Available Not Available Not Available prednisone 20 mg tablet TAKE 1 TABLET BY MOUTH EVERY DAY active Not Available Not Available No t Available aspirin 81 mg tablet,jhonatan yed release Take 1 tablet every day by oral route. 2021 active Not Available Not Available Not Avai lable ciclopirox 8 % topical solution APPLY TO THE AFFECTED AREA(S) BY TOPICAL ROUTE ONCE DAILY PREFERABL Y AT BEDTIME OR 8 HOURS BEFORE WASHING 03/25 completed Not Available Not Available Not Available benzonatate 100 mg capsule TAKE 1 CAPSULE BY MOUTH THREE TIMES A DAY 07/14 completed Not Available Not Available Not Available oseltamivir 75 mg capsule TAKE 1 CAPSULE BY MOUTH EVERY DAY 08/20 completed Not Available Not Available Not Available omeprazole 20 mg capsule,del ayed release TAKE 1 CAPSULE BY MOUTH EVERY DAY IN THE MORNING active Not Available Not Available No t Available montelukast 10 mg tablet TAKE 1 TABLET BY MOUTH EVERY DAY active Not Available Not Available No t Available furosemide 20 mg tablet TAKE 1 TABLET BY MOUTH EVERY DAY NEEDED 2022 active Not Available Not Available Not Avai lable metoprolol succinate ER 25 mg tablet,exte nded release 24 hr TAKE 1/2 TABLET BY MOUTH EVERY DAY IN THE MORNING 2023 active Not Available Not Available Not Avai lable methylpredn isolone 4 mg tablets in a dose pack TAKE 6 TABLETS ON DAY 1 DIRECTED ON PACKAGE AND DECREASE BY 1 TAB EACH DAY FOR A TOTAL OF 6 DAYS 07/12 completed Not Available Not Available Not Available losartan 100 mg tablet 05/24 completed Not Available Not Available Not Available fluticasone propionate 50 mcg/actuati on nasal spray,suspe nsion SPRAY 1 SPRAY BY INTRANASA L ROUTE EVERY DAY active Not Available Not Available No t Available irbesartan 300 mg tablet TAKE 1 TABLET BY MOUTH EVERY DAY 2023 active Not Available Not Available Not Avai lable olmesartan 40 mg-hydrochl orothiazide 12.5 mg tablet TAKE 1 TABLET BY MOUTH EVERY MORNING 06/25 completed Not Available Not Available Not Available losartan 100 mg-hydrochl orothiazide 12.5 mg tablet 05/24 completed Not Available Not Available Not Available valsartan 320 mg-hydrochl orothiazide 12.5 mg tablet Take 1 tablet every day by oral route in the morning. 09/24 completed Not Available Not Available Not Available ProAir HFA 90 mcg/actuati on aerosol inhaler Inhale 2 puffs 3 times a day by inhalatio n route as needed. 2021 active Not Available Not Available Not Avai lable hydrochloro thiazide 12.5 mg tablet TAKE 1/2 TABLET BY MOUTH EVERY DAY IN THE MORNING active Not Available Not Available No t Available nebivolol 2.5 mg tablet TAKE 1 TABLET EVERY DAY BY ORAL ROUTE IN THE MORNING. active Not Available Not Available No t Available Vitamin D3 125 mcg (5,000 unit) tablet Take 1 tablet every day by oral route for 90 days. 2021 active Not Available Not Available Not Avai lable olmesartan 40 mg-amlodipi ne 10 mg-hydrochl orothiazide 12.5 mg tablet TK 1 T PO QAM 08/17 completed Not Available Not Available Not Available Breo Ellipta 100 mcg-25 mcg/dose powder for inhalation INHALE 1 PUFF BY MOUTH EVERY DAY FOR 90 DAYS active Not Available Not Available No t Available Shingrix (PF) 50 mcg/0.5 mL intramuscul ar suspension, kit 05/24 completed Not Available Not Available Not Available [employer]flex COVID-19 Antigen Home Test kit REFER TO MANUFACTU RER INSTRUCTI ONS INCLUDED IN PACKAGING 10/19 completed Not Available Not Available Not Available Paxlovid 300 mg (150 mg x 2)-100 mg tablets in a dose pack TAKE 3 TABLETS BY MOUTH TWICE A DAY FOR 5 DAYS DIRECTED ON PACKAGE. 01/05 completed Not Available Not Available Not Available Vitals Date Recorded Body height Body mass index (BMI) Body weight Body temperature Respiratory rate Heart rate Systolic blood pressure Diastolic blood pressure Provider Name and Address Organization Details Last Updated DateTime 2 165.1 cm 36.3 kg/m2 13561.1 4 g 97.9 [degF] 18 /min 118 /min 156 mm[Hg] 96 mm[Hg] Lilliana Barber [facility] 2 16:07:50 Date Recorded Body height Body mass index (BMI) Body weight Body temperature Respiratory rate Heart rate Systolic blood pressure Diastolic blood pressure Provider Name and Address Organization Details Last Updated DateTime 3 165.1 cm 35.8 kg/m2 22259.3 6 g 98 [degF] 16 /min 94 /min 133 mm[Hg] 84 mm[Hg] Lilliana Barber [facility] 3 10:32:43 Date Recorded Body height Body mass index (BMI) Body weight Body temperature Respiratory rate Heart rate Provider Name and Address Organization Details Last Updated DateTime 3 165.1 cm 36.1 kg/m2 24320.5 4 g 98.2 [degF] 16 /min 99 /min Gómez YoungDylan [facility] 3 09:29:51 Date Recorded Systolic blood pressure Diastolic blood pressure Provider Name and Address Organization Details Last Updated DateTime 10/19/2022 150 mm[Hg] 90 mm[Hg] Rohith Rizvi MD [address] [facility] [address], [place], [address], [facility] 10/19/2022 10:00:21 Date Recorded Heart rate Systolic blood pressure Diastolic blood pressure Provider Name and Address Organization Details Last Updated DateTime 11/02/2022 91 /min 124 mm[Hg] 82 mm[Hg] Ladi Galeneden [facility] 11/02/2022 15:34:59 Date Recorded Heart rate Systolic blood pressure Diastolic blood pressure Provider Name and Address Organization Details Last Updated DateTime 11/23/2022 90 /min 137 mm[Hg] 85 mm[Hg] Lory Rogers [facility] 11/23/2022 15:07:53 Date Recorded Body height Heart rate Respiratory rate Body temperature Body mass index (BMI) Body weight Systolic blood pressure Diastolic blood pressure Provider Name and Address Organization Details Last Updated DateTime 3 165.1 cm 94 /min 16 /min 97.5 [degF] 36 kg/m2 91250.7 5 g 126 mm[Hg] 80 mm[Hg] Lory Rogers [facility] 3 12:59:56 Date Recorded Body height Provider Name an d Address Organization Details Last Updated DateTime 06/06/2023 165.1 cm Lory Rogers [facility] 06/06/2023 16:45:47 Date Recorded Body temperature Respiratory rate Body mass index (BMI) Body weight Heart rate Systolic blood pressure Diastolic blood pressure Provider Name and Address Organization Details Last Updated DateTime 4 98.8 [degF] 16 /min 35.8 kg/m2 86215.3 6 g 110 /min 154 mm[Hg] 102 mm[Hg] Lilliana Barber [facility] 4 16:53:11 Social History Question Answer Notes LastModified by Organizat ion Details LastModified Time Tobacco Smoking Status Never Smoker Rohith Rizvi MD [address] [place] [address] [address], [place], [address], [facility] 05/24/2019 14:53:31 What Is Your Level Of Alcohol Consumption? None Information not available 09/24/2020 What Is Your Level Of Caffeine Consumption? Occasional Information not available 09/24/2020 Are You Currently Employed? No Information not available 05/24/2019 Which Illicit Or Recreational Drugs Have You Used? No Information not available 05/24/2019 Are There Any Guns Present In Your Home? No Information not available 09/24/2020 Live Alone Or With Others? With Others Information not available 05/24/2019 Marital Status [email or web address] n not available 05/24/2019 What Was The Date Of Your Most Recent Tobacco Screening? 06/25/2021 [email or web address] Information not available 06/25/2021 Performs Monthly Self-breast Exam? Yes Information no t available 09/24/2020 Seat Belts Used Routinely Yes Information not available 09/24/2020 Smoke Alarm In Home Yes Information not available 09/24/2020 Do You Use Sunscreen Routinely? No Information not available 09/24/2020 Have You Used IV Drugs? No Information not available 09/24/2020 Sex: Unknown Functional Status Question Answer Note LastModified by Organization D etails LastModified Time Are you able to care for yourself? Yes Information n ot available 05/24/2019 Mental Status None recorded. Family History Relationship Description Onset Age of this Age Resolved Age Notes LastModified by Organization Details LastModified Time Father Coronary arterioscler osis 83 [email or web address] Not available 2018 14:53:02 Father Chronic obstructive pulmonary disease [email or web address] Not available 2018 14:53:14 Medical History No medical history recorded. Gynecological History Statement/Question Response Date of Last Mammogram 03/30/2021 Obstetrics History GPAL:G 0 P 0 0 0 0 Immunizations Vaccine Type Date Status Note Provider Nam e and Address Organization Details Recorded Time zoster, unspecified formulation 9 completed Rohith Rizvi MD [address], [place], [address], [facility] 02/25/2023 15:04:03 Influenza, split virus, quadrivalent, preservative 4 completed Rohith Rizvi MD [address], [place], [address], [facility] 02/25/2023 15:04:03 Influenza, split virus, quadrivalent, preservative 0 completed Rohith Rizvi MD [address], [place], [address], [facility] 02/25/2023 15:04:03 SARS-COV-2 (COVID-19) vaccine, UNSPECIFIED 1 completed Rohith Rizvi MD [address], [place], [address], [facility] 02/25/2023 15:04:03 SARS-COV-2 (COVID-19) vaccine, UNSPECIFIED 1 completed Rohith Rizvi MD [address], [place], [address], [facility] 02/25/2023 15:04:03 Influenza, split virus, quadrivalent, preservative 1 completed Rohith Rizvi MD [address], [place], [address], [facility] 02/25/2023 15:04:03 COVID-19, mRNA, LNP-S, PF, 30 mcg/0.3 mL dose 1 completed Rohith Rizvi MD [address], [place], [address], [facility] 02/25/2023 15:04:03 Influenza, high-dose, quadrivalent, PF 2 completed Rohith Rizvi MD [address], [place], [address], [facility] 02/25/2023 15:04:03 COVID-19, mRNA, LNP-S, bivalent, PF, 30 mcg/0.3 mL dose 2 completed Rohith Rizvi MD [address], [place], [address], [facility] 02/25/2023 15:04:03 Influenza, adjuvanted, quadrivalent, PF 3 completed Rohith Rizvi MD [address], [place], [address], [facility] 02/25/2023 15:04:03 Influenza, high-dose, trivalent, PF 4 completed Rohith Rizvi MD [address], [place], [address], [facility] 02/11/2024 16:04:30 Past Encounters Encounter ID Performer Location Encounter Start Date Encounter Closed Date Diagnosis/Indication Diagnosis SNOMED-CT Code Diagnosis ICD10 Code Diagnosis Note [id number] Rohith Rizvi MD [facility], [facility] [address] [place] [address] 05/24/2019 14:05:12 05/24/2019 15:08:49 Benign hypertension 32037255 I10 Mixed hyperlipidemia 267 524643 E78.2 Tachycardia 3228694 R00. 0 Asthma 293615555 J45.90 9 Gastroesop hageal reflux disease without esophagitis 361045456 K21.9 Body mass index 30+ - obesity 810651852 Z68.36 Screening mammography 24 943822 Z12.31 Screening for malignant neoplasm of cervix 427858183 Z12.4 Screening for malignant neoplasm of colon 189641337 Z12.11 Active or passive immunization 032351846 Z23 pt will bring shot records from [facility] Menopause 982115923 Z78. 0 Viral screening 59420040 4 Z11.59 [id number] Rohith Rizvi MD [employer], [facility] [address] [place] [address] 09/25/2019 10:19:04 09/25/2019 11:01:58 Adult health examination 143101741 Z00.01 Benign hypertension 1072 5009 I10 last EKG 05/24/19 Asthma 583638333 J45.90 9 last PFT 05/24/19 Body mass index 30+ - obesity 115057780 Z68.36 education Gastroesop hageal reflux disease without esophagitis 133026892 K21.9 Mixed hyperlipidemia 267 811296 E78.2 last LDL 06/18/19 Menopause 176722530 Z78. 0 last DEXA 06/07/19 Screening mammography 24 459727 Z12.31 Screening for malignant neoplasm of cervix 446935882 Z12.4 Screening for malignant neoplasm of colon 572193262 Z12.11 Active or passive immunization 685016752 Z23 pt will bring shot records from [facility] [id number] Rohith Rizvi MD [employer], [facility] [address] [place] [address] 03/26/2020 10:25:17 03/26/2020 11:51:22 Benign hypertension 31514840 I10 last EKG 05/24/19 Asthma 528329162 J45.90 9 last PFT 05/24/19 Body mass index 30+ - obesity 926325899 Z68.36 education Gastroesop hageal reflux disease without esophagitis 253439478 K21.9 Mixed hyperlipidemia 267 817846 E78.2 last LDL 06/18/19 Osteopenia 305053972 M85 .80 Screening mammography 24 048032 Z12.31 last Mammogram 03/04/20 Screening for malignant neoplasm of cervix 573062879 Z12.4 per pt had PAP 12/31/2019 Screening for malignant neoplasm of colon 020644799 Z12.11 Active or passive immunization 259948075 Z23 up to date [id number] Rohith Rizvi MD [place] [employer], [facility] [address] [place] [address] 09/24/2020 10:47:39 09/24/2020 12:04:23 Adult health examination 171787822 Z00.01 Benign hypertension 1072 5009 I10 last EKG 05/24/19 Asthma 269641099 J45.90 9 last PFT 05/24/19 Body mass index 30+ - obesity 233453376 Z68.36 education Gastroesop hageal reflux disease without esophagitis 496880471 K21.9 stable on low dose PPI Menopause 008018110 Z78. 0 last DEXA 06/07/19 Mixed hyperlipidemia 267 507903 E78.2 last LDL 04/15/20 Osteopenia 921140166 M85 .80 last DEXA 06/07/19 Vitamin D deficiency 347 63693 E55.9 last level 06/06/20 Screening mammography 24 045582 Z12.31 last Mammogram 03/04/20 Screening for malignant neoplasm of cervix 446356853 Z12.4 per pt had PAP 12/31/2019 Screening for malignant neoplasm of colon 362800944 Z12.11 Onychomyco sis of toenails 949524980 B35.1 Active or passive immunization 857537183 Z23 up to date [id number] Rohith Rizvi MD [place] [employer], [facility] [address] [facility] [address] [place] [address] 03/25/2021 09:50:28 03/25/2021 10:47:24 Benign hypertension 41157260 I10 last EKG 09/25/20 Asthma 296237187 J45.90 9 last PFT 09/25/20 Body mass index 30+ - obesity 594892830 Z68.36 education Gastroesop hageal reflux disease without esophagitis 973386918 K21.9 stable on low dose PPI Menopause 515682462 Z78. 0 last DEXA 06/07/19 Mixed hyperlipidemia 267 174418 E78.2 last LDL 04/15/20 Vitamin D deficiency 347 94132 E55.9 last level 06/06/20 Screening mammography 24 082061 Z12.31 last Mammogram 03/04/20 Screening for malignant neoplasm of cervix 826469115 Z12.4 per pt had PAP 12/31/2019 Screening for malignant neoplasm of colon 197266645 Z12.11 decline C scope OR cologaurd Active or passive immunization 054582477 Z23 up to date [id number] Rohith Rizvi MD [place] [employer], [facility] [address] [place] [address] 06/25/2021 10:19:02 06/25/2021 11:20:06 Benign hypertension 09154347 I10 last EKG 09/25/20per pt had optometry 05/2021 Asthma 349100795 J45.90 9 last PFT 09/25/20 Vitamin D deficiency 347 61536 E55.9 last level 06/06/20 Mixed hyperlipidemia 267 297384 E78.2 last LDL 03/26/21 Screening mammography 24 038940 Z12.31 last Mammogram 03/30/21 Screening for malignant neoplasm of cervix 625404480 Z12.4 per pt had PAP 12/31/2019 Screening for malignant neoplasm of colon 061275975 Z12.11 decline C scope OR cologaurd Active or passive immunization 432753182 Z23 up to date [id number] Rohith Rizvi MD [employer], [facility] [address] [place] [address] 09/22/2021 11:37:52 09/22/2021 12:43:45 Benign hypertension 01383847 I10 last EKG 09/25/20per pt had optometry 05/2021\on the high side todayresta rt 1/2 tab HCTZ , BP 2 weeks Body mass index 30+ - obesity 490371463 Z68.36 education Asthma 952010767 J45.90 9 last PFT 09/25/20 Gastroesop hageal reflux disease without esophagitis 230747860 K21.9 stable on low dose PPI Menopause 096254851 Z78. 0 last DEXA 06/07/19 Mixed hyperlipidemia 267 991936 E78.2 last LDL 03/26/21 Vitamin D deficiency 347 88020 E55.9 last level 03/26/21 Palpitations 27478453 R0 0.2 better after stopping HCTZdecrea se HCTZ 6.25 Screening mammography 24 423043 Z12.31 last Mammogram 03/30/21 Screening for malignant neoplasm of cervix 150852330 Z12.4 per pt had PAP 12/31/2019 Screening for malignant neoplasm of colon 984959153 Z12.11 decline C scope OR cologaurd Active or passive immunization 296522400 Z23 up to date Long-term drug therapy 671976837 Z79.899 statin [id number] Rohith Rizvi MD [place] [employer], [facility] [address] [place] [address] 01/05/2022 11:00:58 01/05/2022 12:36:02 Adult health examination 892853616 Z00.01 Benign hypertension 1072 5009 I10 last EKG 09/18/21per pt had optometry 05/2021\on the high side todayBP 2 weeks Asthma 447800694 J45.90 9 last PFT 09/25/20 Body mass index 30+ - obesity 506184572 Z68.36 education History of SARS-CoV-2 29 33340002 69594912 Z86.16 12/16/21 Gastroesop hageal reflux disease without esophagitis 356446491 K21.9 stable on low dose PPI Long-term drug therapy 594474618 Z79.899 statin Menopause 348984951 Z78. 0 last DEXA 06/07/19 Mixed hyperlipidemia 267 109269 E78.2 last LDL 12/28/21 Onychomyco sis of toenails 199692449 B35.1 Osteopenia 926736495 M85 .80 last DEXA 06/07/19 Vitamin D deficiency 347 29829 E55.9 last level 03/26/21 Screening mammography 24 164259 Z12.31 last Mammogram 03/30/21 Screening for malignant neoplasm of cervix 987230816 Z12.4 per pt had PAP 12/31/2019 Screening for malignant neoplasm of colon 314077547 Z12.11 decline C scope OR cologaurd Active or passive immunization 562783678 Z23 up to date Advance di rective discussed with patient 605912670 Z71.89 education [id number] Rohith Rizvi MD [place] [employer], [facility] [address] [place] [address] 05/04/2022 15:33:26 05/04/2022 16:45:27 Benign hypertension 83206153 I10 last EKG 09/18/21per pt had optometry 2on the high side todayadd coreg BIDBP 2 weeks Tachycardia 8571687 R00. 0 Headache 15007104 R51.9 ?? migraine , try Excedrin PRN [id number] Rohith Rizvi MD [place] [employer], [facility] [address] [place] [address] 07/12/2022 10:06:55 07/12/2022 11:24:30 Palpitations 49070718 R00.2 Benign hypertension 1072 5009 I10 last EKG 05/08/22pe r pt had optometry P 2 weeks Asthma 732148333 J45.90 9 last PFT 01/05/22 Mixed hyperlipidemia 267 026998 E78.2 last LDL 02/22/22 Vitamin D deficiency 347 69402 E55.9 last level 12/28/21 Body mass index 30+ - obesity 297279968 Z68.36 education Screening mammography 24 312731 Z12.31 last Mammogram 04/01/22 Screening for malignant neoplasm of cervix 049067051 Z12.4 per pt had PAP 02/2022 Screening for malignant neoplasm of colon 545681347 Z12.11 decline C scope OR cologaurd Active or passive immunization 010467516 Z23 up to date [id number] Rohith Rizvi MD [place] [employer], [facility] [address] [place] [address] 10/19/2022 09:21:24 10/19/2022 10:08:53 Benign hypertension 58619866 I10 last EKG 05/08/22pe r pt had optometry dd bystolicBP 2 weeks Body mass index 30+ - obesity 605294973 Z68.36 education Asthma 808944640 J45.90 9 last PFT 01/05/22 Long-term drug therapy 525526121 Z79.899 statin Mixed hyperlipidemia 267 272104 E78.2 last LDL 02/22/22 Vitamin D deficiency 347 07453 E55.9 last level 08/03/22 Menopause 406901614 Z78. 0 last DEXA 06/07/19 Screening mammography 24 260255 Z12.31 last Mammogram 04/01/22 Screening for malignant neoplasm of cervix 182373083 Z12.4 per pt had PAP 02/2022 Screening for malignant neoplasm of colon 909962385 Z12.11 decline C scope OR cologaurd Active or passive immunization 614747922 Z23 up to date [id number] Rohith Rizvi MD [employer], [facility] [address] [place] [address] 01/19/2023 12:35:54 01/19/2023 13:49:55 Adult health examination 516622672 Z00.01 Benign hypertension 1072 5009 I10 last EKG 05/08/22pe r pt had optometry dd bystolicBP 2 weeks Body mass index 30+ - obesity 340913740 Z68.36 education Asthma 457882683 J45.90 9 last PFT 01/05/22 Gastroesop hageal reflux disease without esophagitis 765481734 K21.9 stable on low dose PPI History of SARS-CoV-2 29 37331818 63071314 Z86.16 12/16/21 Long-term drug therapy 404903389 Z79.899 statin , last A1c 10/27/22 Menopause 618459979 Z78. 0 last DEXA 06/07/19 Mixed hyperlipidemia 267 279774 E78.2 last LDL 10/27/22 Onychomyco sis of toenails 222062375 B35.1 stable Vitamin D deficiency 347 78662 E55.9 last level 08/03/22 Screening mammography 24 300444 Z12.31 last Mammogram 04/01/22 Screening for malignant neoplasm of cervix 736613076 Z12.4 per pt had PAP 02/2022 Screening for malignant neoplasm of colon 399346741 Z12.11 decline C scope OR cologaurd Active or passive immunization 102007155 Z23 up to date Advance di rective discussed with patient 129606093 Z71.89 education [id number] Rohith Rizvi MD [employer], [facility] [address] [place] [address] 06/06/2023 16:37:19 06/06/2023 17:57:10 Upper respiratory infection 02814623 J06.9 Benign hypertension 1072 5009 I10 last EKG 05/08/22pe r pt had optometry dd bystolicBP 2 weeks Body mass index 30+ - obesity 256718554 Z68.36 education Asthma 220283018 J45.90 9 last PFT 01/05/22 History of SARS-CoV-2 29 67719352 54776234 Z86.16 12/16/21 Long-term drug therapy 905709753 Z79.899 statin , last A1c 10/27/22 Mixed hyperlipidemia 267 584542 E78.2 last LDL 10/27/22 Menopause 448010086 Z78. 0 last DEXA 01/24/23 Vitamin D deficiency 347 34501 E55.9 last level 08/03/22 Screening mammography 24 741491 Z12.31 last Mammogram 04/04/23 Screening for malignant neoplasm of cervix 203586517 Z12.4 per pt had PAP 02/2022 Screening for malignant neoplasm of colon 835968607 Z12.11 decline C scope OR cologaurd Active or passive immunization 971277339 Z23 up to date Health Concerns Section Related Observation LastModified by Organization Detai ls LastModified Time None Recorded Concern Status LastModified by Organization Details LastModified Time None Recorded Advance Directives Directive None Recorded Payers Encounter Date Sequence Insurance Name Policy Number Policy Harper Covered Member ID Harper Member ID Guarantor Name 05/04/2022 1 MEDICARE-[place] (MEDICARE) Schuyler Brown [place] [id number] Gwendilyn Mateo 05/04/2022 2 CIGNA SUPPLEMENTAL - [employer] HE[employer] AND LIFE INSURANCE (MEDICARE SUPPLEMENT) Schuyler Dasilva [place] [id number] Gwendilyn Mateo 07/12/2022 1 MEDICARE[place] (MEDICARE) Schuyler Dasilva [place] [id number] Gwendilyn Mateo 07/12/2022 2 [employer]IG[employer] SUPPLEMENTAL - [employer] HE[employer] AND LIFE INSURANCE (MEDICARE SUPPLEMENT) Schuyler Dasilva [place] [id number] Gwendilyn Mateo 10/19/2022 1 MED[place]MEDICARE[place] Schuyler Dasilva [place] [id number] Gwendilyn [place] 10/19/2022 2 [employer] SUPPLEMENTAL - [employer] HE[employer] AND LIFE INSURANCE (MEDICARE SUPPLEMENT) Schuyler Galindo [id number] Schuyler [place] 01/19/2023 1 [place] Schuyler Galindo [id number] Mihain Mateo 01/19/2023 2 [employer] SUPPLEMENTAL - C[employer]NA HEALTH AND LIFE INSURANCE (MEDICARE SUPPLEMENT) Schuyler Albrightley [id number] Schuyler Albrightley 06/06/2023 1 [place] Schuyler Galindo [id number] Sdenderic [place] 06/06/2023 2 [employer]IG[employer] SUPPLEMENTAL - C[employer]NA HE[employer] AND LIFE INSURANCE (MEDICARE SUPPLEMENT) Schuyler Galindo [id number] Schuyler Galindo Notes Date Note Type Note Provider Name and Address Organization Details Recorded Time 05/04/2022 text/html Hypertension F/UReported bypatient.Medications: taking medications as directed; no side effects from medication Lifestyle:regular exercise; limiting/avoiding salt; compliant with low salt diet Associated Symptoms:no dizziness; no lightheadedness; no chest pain; no shortness of breath; no palpitations; no edema; no calf pain with exertion; no headache had her 2nd booster 04/19/22 , had frontal CURRIE and ^ BPHA is better nowhad nausea today in AM Rohith Rizvi MD [address] [facility] [address], [place], [address], [facility] 05/04/2022 16:41:18 07/12/2022 text/html Hypertension F/UReported bypatient.Medications: taking medications as directed; no side effects from medication Lifestyle:regular exercise; limiting/avoiding salt; compliant with low salt diet Associated Symptoms:no dizziness; no lightheadedness; no chest pain; no shortness of breath; no palpitations; no edema; no calf pain with exertion; no headache still have palpitation on and off , did not take metoprolol OR coreg Rohith Rizvi MD [address] [facility] [address], [place], [address], [facility] 07/12/2022 11:11:58 10/19/2022 text/html Hypertension F/UReported bypatient.Medications: taking medications as directed; no side effects from medication Lifestyle:regular exercise; limiting/avoiding salt; compliant with low salt diet Associated Symptoms:no dizziness; no lightheadedness; no chest pain; no shortness of breath; no palpitations; no edema; no calf pain with exertion; no headache Rohith Rizvi MD [address] [facility] [address], [place], [address], [facility] 10/19/2022 10:04:53 01/19/2023 text/html Hypertension F/UReported bypatient.Medications: taking medications as directed; no side effects from medication Lifestyle:regular exercise; limiting/avoiding salt; compliant with low salt diet Associated Symptoms:no dizziness; no lightheadedness; no chest pain; no shortness of breath; no palpitations; no edema; no calf pain with exertion; no headacheMedicare Annual Wellness VisitReported bypatient.Diet and Nutrition:healthy diet Fracture Risk:no history of fractures; no recent explained fracture; no sudden unexplained fractures; no previous musculoskeletal injuries Physical Activity:recent increase in physical activity; good physical condition; discussed exercise habits Depression Risk:never feels sad, empty, or tearful; no loss of interest in activities; no significant changes in weight; no sleep disturbances or insomnia; no agitation; no loss of energy; no feelings of worthlessness or guilt; no thoughts of suicide; no history of depression; no history of mood disorders Orientation:no disorientation to time; no disorientation to date; no disorientation to place Concentration and Memory:no decreased concentrating ability; no memory lapses or loss; does not forget words Speech/Motor difficulties:no speech difficulties; no difficulty expressing formulated concepts; no difficulty with fine manipulative tasks; no difficulty writing/copying; no slowed reaction time; does not knock things over when trying to pick them up Hearing:no loss of hearing Vision:no vision problems Activities of Daily Living:able to bathe with limited or no assistance; able to contol urination and bowels; able to dress with limited or no assistance; able to feed self with limited or no assistance; able to get out of chair or bed with limited or no assistance; able to groom with limited or no assistance; able to toilet with limited or no assistance Instrumental Activities of Daily Living:able to do house work with limited or no assistance; able to grocery shop with limited or no assistance; able to manage medications with limited or no assistance; able to manage money with limited or no assistance; able to prepare meals with limited or no assistance; able to use the phone with limited or no assistance Falls Risk Assessment:no frequent falls while walking; no fall in the past year; no fall since last visit; no dizziness/vertigo Home Safety:use of seatbelts; no vision or hearing loss while driving Rohith Rizvi MD [address] [facility] [address], [place], [address], [facility] 01/19/2023 13:23:48 06/06/2023 text/html Hypertension F/UReported bypatient.Medications: taking medications as directed; no side effects from medication Lifestyle:regular exercise; limiting/avoiding salt; compliant with low salt diet Associated Symptoms:no dizziness; no lightheadedness; no chest pain; no shortness of breath; no palpitations; no edema; no calf pain with exertion; no headache URI , 1 week , mother Dx with flu , cough , wheezing ,-ve COVID and flu @ [facility] 06/05/22 Rohith Rizvi MD [address] [facility] [address], [place], [address], [facility] 06/06/2023 17:45:26 OBGyn Episode No OBEpisode recorded.
== END 2024-09-19 14:44 | disposition home or self-care (01) ==
LOC: ANHSURGERY 14:47
PROVIDERS: Anesthesiology; PCP Family Medicine; Visit Provider Obstetrics & Gynecology
DX: R93.89 Abnormal findings on diagnostic imaging of other specified body structures (principal); Z79.899 Other long term (current) drug therapy
CPT/HCPCS: 36415; 80048; 85027

== ENCOUNTER 2024-10-04 01:19 | Day surgery (SDC) | payer MEDICARE, SELFPAY ==
[2024-09-18 11:11] VITALS: BMI 34.4
--- NOTE | 2024-09-18 11:23 | PC.NURSE ---
Report to the Outpatient Waiting Room, entrance under the green pavilion located off [facility], at time __0830am on date _10/04/24 . Planned Procedure Time: __1030am .? Time changes happen often and if your time is changed the preop area will call you the afternoon before. - You and your visitor will be asked to self-screen and do not enter if you have any COVID symptoms. Please call surgeon if you need to reschedule. - A mask is optional within the hospital at this time. Patients may have clear liquids (water, carbonated beverages, clear teas, apple juice) until 3 hours prior to surgery with a maximum of 20 ounces. - No food from midnight until time of surgery and no smoking, or chewing tobacco (or any form of nicotine). No chewing gum, candy or mints. ( 0730 am) Take only the following medications with a SIP of water on the morning of surgery: Metoprolol and Montulekast, Inhaler if needed DO NOT STOP ANY OF YOUR OTHER PRESCRIPTION MEDICATIONS PRIOR TO SURGERY EXCEPT THE FOLLOWING Hold all vitamins and supplements for 3 days per anesthesiologist.Date to take last dose____09/30/24 Medications to discontinue per physician __Jamie Hernandez instructions Date to take last dose per Dr Hernandez Please no make-up, nail honduran, hairspray, perfume, deodorant, or body powder the day of surgery.? No jewelry (including any body piercings) or valuables the day of surgery, leave them at home.? Please take a shower or bath the night before, or the morning of, surgery with an antibacterial soap.? Wear comfortable, loose fitting clothing.? - Jewelry must be removed prior to entering the operating room.? Rings and piercings that are not removed may be cut off. - The hospital will not accept responsibility for valuables.? - Please leave all valuables, including medications, at home the day of surgery. If you are going home after surgery, a licensed public transit bus driver must drive you home.? - NO public transportation without another adult if you receive anesthesia. - We recommend that an adult stay with you for 24 hours following discharge. - We also recommend that you do not drive, make important decision, drink alcoholic beverages, or take any drugs that were not prescribed by your health care provider for at least 24 hours after your discharge time. Follow any additional instructions given to you from your surgeon. Telephone instructions given to ___Patient and asked if any additional questions and then verbalized understanding. Patient advised to call surgeon office or pre surgery nurse liaison [phone] if any additional questions.
--- OUTSIDE RECORDS SUMMARY | 2024-10-04 01:22 | XMS_ITS | Data Portability ---
Author Organization [facility], [employer] Address [address] 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 Follow up as noted below. [email or web address] Not available 10/19/2022 09:25:56 06/06/2023 06/06/2023 Patient presented for follow up. Studies ordered as below. Discussed plan with patient/careg iver, who expressed understanding . Follow up as noted below. [email or web address] Not available 06/06/2023 16:45:38 Plan of Treatment Reminders Order Date Submit Date Provider Last Modified By Organization Details Last Modified Time Details Appointments None recorded. Lab lipid panel w/ direct LDL, serum 2023 024 [facility], [address], [place], [address], 04:03:15 TSH, serum or plasma 2023 024 [facility], [address], [address], [place], [address], 4 04:03:16 CMP, serum or plasma 2023 024 [facility], [address], [address], [place], [address], 4 04:03:15 CBC w/ auto diff 2023 024 [facility], [address], [address], [place], [address], 4 04:03:15 HbA1c (hemoglobi n A1c), blood 2023 024 [facility], [address], [address] [place], [place], [address], 4 04:04:42 vitamin D, 25-hydroxy , total, serum 2023 024 [facility], [address], [address], [place], [address], 4 04:03:16 CMP, serum or plasma 2022 023 [facility], [address], [address], [place], [address], 3 05:42:10 CBC w/ auto diff 2022 023 [facility], [address], [address] [place], [place], [address], 3 05:41:47 noninvasiv e colorectal cancer DNA + occult blood screening, QL, stool 2022 023 [employer] (Cologuard Orders Only), [address], [address], [place], [address], 3 13:23:13 lipid panel w/ direct LDL, serum 2022 023 [facility], [address], [address], [place], [address], 3 05:28:03 TSH, serum or plasma 2022 023 BOTHELL [employer] [facility], [address], [address], [place], [address], 3 10:01:51 HbA1c (hemoglobi n A1c), blood 2022 023 BOTHELL [employer] [facility], [facility] [address], [address], [place], [address], 3 10:01:52 CMP, serum or plasma 2022 023 [facility], [facility] [address], [place], [address], 3 03:46:55 CBC w/ auto diff 2022 023 [facility], [facility], [address], [place], [address], 3 03:46:56 vitamin D, 25-hydroxy , total, serum 2022 023 [facility], [address], [address] [place], [place], [address], 3 03:46:57 ESR (erythrocy te sedimentat ion rate), blood 2021 [address], [place], [address], 2 12:19:12 magnesium, serum or plasma 2021 022 [facility] [employer] [facility], [address], [address], [place], [address], 5 09:12:45 D-dimer, quant, plasma 2021 022 [facility] [employer] [facility], [address], [address], [place], [address], 5 09:12:45 Referral optometris t referral 2023 024 [facility], [address] [place], [address], 4 04:02:06 optometris t referral 2022 023 [facility], [address] [place], [address], 3 05:35:15 optometris t referral 2022 023 [facility], [address] [place], [address], 3 05:21:[address] referral 2022 023 BOTHELL Moiz Garner MD, [address] [facility] [address], [place], [address], 3 09:03:04 optometris t referral 2022 023 [facility], [address] [place], [address], 5 11:38:31 Procedures None recorded. Surgeries None recorded. Imaging electrocar diogram 2023 024 [facility], [facility], [address], [place], [address], 4 17:58:05 XR, chest, 2 view 2023 024 [facility], [address], [address], [place], [address], 4 04:04:55 bone density 2022 023 [facility], [address], [address], [place], [address], 3 10:17:35 bone density 2022 023 [facility], [address], [address], [place], [address], 3 05:27:46 electrocar diogram 2021 022 [facility], [facility], [address], [place], [address], 2 17:12:27 Medication Orders doxycyclin e hyclate 100 mg capsule 2023 024 [facility] [id number] [facility], [address] [place] [address], [place], [address], 4 18:42:38 benzonatat e 100 mg capsule 2023 024 [facility] [id number] [facility], [address] [place] [address], [place], [address], 4 18:42:42 prednisone 20 mg tablet 2023 024 [facility] [address] In [facility], [address] [place] [address] [address], [place], [address], 4 17:43:44 nebivolol 2.5 mg tablet 2022 023 [facility] [address] In [facility], [address] [place] [address] [address], [place], [address], 3 18:40:32 furosemide 20 mg tablet 2022 023 [facility] [address] In [facility], [address], [place], [address], 10:03:50 Coreg 6.25 mg tablet 2021 022 [facility] [id number] In [facility], [address], [place], [address], 11:08:14 Patient TargetsNo targets recorded. Patient Instructions Encounter Date Encounter Id Patient Instructions Last Modified By Organization Details Last Modified Time 05/04/2022 [id number] headache: care instructions mshenouda Not available 05/04/2022 16:40:35 07/12/2022 [id number] mammogram: about this test mshenouda Not available 07/12/2022 11:11:28 palpitations: care instructions mshenouda Not available 07/12/2022 11:11:28 controlling your asthma: care instructions mshenouda Not available 07/12/2022 11:11:27 learning about asthma mshenouda Not available 07/12/2022 11:11:27 body mass index: care instructions mshenouda Not available 07/12/2022 11:11:28 learning about healthy weight mshenouda Not available 07/12/2022 11:11:27 10/19/2022 [id number] mammogram: about this test mshenouda Not available 10/19/2022 10:02:12 controlling your asthma: care instructions mshenouda Not available 10/19/2022 10:02:12 learning about asthma mshenouda Not available 10/19/2022 10:02:12 body mass index: care instructions mshenouda Not available 10/19/2022 10:02:11 learning about healthy weight mshenouda Not available 10/19/2022 10:02:11 01/19/2023 [id number] mammogram: about this test mshenouda Not available 01/19/2023 13:23:09 controlling your asthma: care instructions mshenouda Not available 01/19/2023 13:23:09 learning about asthma mshenouda Not available 01/19/2023 13:23:08 spirometry testing* RUFINO Not available 01/19/2023 14:23:46 body mass index: care instructions mshenouda Not available 01/19/2023 13:23:09 learning about healthy weight mshenouda Not available 01/19/2023 13:23:09 living will mshenouda Not available 12/29 13:18:07 06/06/2023 [id number] mammogram: about this test mshenouda Not available 06/06/2023 17:43:38 controlling your asthma: care instructions mshenouda Not available 06/06/2023 17:43:37 learning about asthma mshenouda Not available 06/06/2023 17:43:37 upper respirator y infection (cold): care instructions mshenouda Not available 06/06/2023 17:43:37 body mass index: care instructions mshenouda Not available 06/06/2023 17:43:37 learning about healthy weight mshenouda Not available 06/06/2023 17:43:36 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 Referring Physician: Rohith Rizvi, Internal Medicine, Encounter Date: 07/12/2022 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 Not Available [facility] (Lab) [facility], [place], [address], 05/04/2022 22:03:43 05/04/20 22 05/04/2022 ERYTH ROCYT E SEDIM ENTAT ION RATE (ESR) sed rate 17 mm/HR 0-20 Not Available [facility] (Main Location) [facility] [address] ,[place], [address], 05/05/2022 12:19:12 05/04/20 22 05/04/2022 MAGNE SIUM magnesium 2.1 mg/dL 1.6-2. 4 Not Available [facility] (Main Location) [facility] [address] ,[place], [address], 05/05/2022 12:19:13 10/28/19 23 10/28/2022 LIPID PANEL , STAND KATE cholesterol, total 147 mg/dL <200 normal Not Available [employer] [address] [address] [place], [address], 10/28/2022 10:01:50 10/28/19 23 10/28/2022 LIPID PANEL , STAND KATE HDL cholesterol 47 mg/dL > or = 50 low Not Available [employer] [address] [address] [place], [address], 10/28/2022 10:01:50 10/28/19 23 10/28/2022 LIPID PANEL , STAND KATE triglyceride s 111 mg/dL <150 normal Not Available [employer] [address] [address] [place], [address], 10/28/2022 10:01:50 10/28/19 23 10/28/2022 LIPID PANEL [...] 9): 2061- 2068 (http ://ed ucati on.Qu chauVicept Therapeutics. [employer]/f aq/FA Q164) Not Available [employer] [address], [address], 10/28/2022 10:01:50 10/28/19 23 10/28/2022 LIPID PANEL , STAND KATE chol/HDLC ratio 3.1 (calc ) <5.0 normal Not Available [address], [address], 10/28/2022 10:01:50 10/28/19 23 10/28/2022 LIPID PANEL , STAND KATE non HDL cholesterol 100 mg/dL _(adama c) <130 normal For patie nts with diabe suad plus 1 major ASCVD risk facto r, treat ing to a non-H DL-C goal of <100 mg/dL (LDL- C of <70 mg/dL ) is tereso johnson optio n. Not Available [employer] [address], [address], 10/28/2022 10:01:50 10/28/19 23 10/28/2022 TSH TSH 1.16 mIU/L 0.40-4 .50 normal Not Available [employer] [address], [address], 10/28/2022 10:01:51 10/28/19 23 10/28/2022 HEMOG LOBIN [...] Care in Diabe suad(A DA). Not Available [employer] [address] [address] [place], [address], 10/28/2022 10:01:52 01/20/20 23 01/19/2023 anna metry testi ng* Spirometry Not Available [facility], [facility] [address], [place], [address], 01/19/2023 13:13:33 05/04/20 22 06/08/2022 elect rocar diogr am No observ ation record ed. [facility], [facility] [address], [place], [address], 07/12/2022 10:59:50 05/04/20 22 05/04/2022 elect rocar diogr am No observ ation record ed. [facility], [facility] [address], [place], [address], 07/12/2022 10:59:50 01/20/2001/19/2023 anna metry testi ng* No observ ation record ed. [email or web address] [facility], [facility] [address], [place], [address], 01/24/2023 19:08:16 01/29/20 23 01/24/2023 bone densi ty No observ ation record ed. [facility] [address], [place], [address], 01/28/2023 19:15:50 04/04/2004/04/2023 MAMMO , scree jeanne, tomos ynthe sis, bilat eral No observ ation record ed. [facility] [address], [place], [address], 04/04/2023 15:12:24 06/06/19 24 06/06/2023 elect alli floyd am No observ ation record ed. [email or web address] [facility], [facility] [address], [place], [address], 06/06/2023 17:58:05 Result Notes None recorded. Problems Name Problem SNOMED Code Status Onset Date Resolution Date Notes Provider Name and Address Organization Details Recorded Time Body mass index 30+ - obesity 278240052 Active 2018 Not Available [facility] 3 12:57:50 Benign hypertensi on 18204267 Active 2018 Not Available [facility] 12:57:50 Mixed hyperlipid emia 675931415 Active 2018 Not Available [facility] 3 12:57:51 Gastroesop hageal reflux disease without esophagiti s 721707457 Active 2018 Not Available [facility] 3 12:57:50 Asthma 134643627 Active 2018 Not Available [facility] 3 12:57:50 Menopause Active 2018 Not Available [facility] 3 12:57:50 Osteopenia 918863707 Active 2019 Not Available [facility] 3 12:57:51 Vitamin D deficiency 44105739 Active 2019 Not Available [facility] 3 12:57:51 Onychomyco sis of toenails 323344950 Active 2020 Not Available [facility] 3 12:57:51 Long-term drug therapy Active 2021 Not Available [facility] 3 12:57:50 History of SARS-CoV-2 3568040598912 59573 Active 2021 Not Available [facility] 3 12:57:51 Tachycardi a 3176034 Active 2021 Not Available [facility] 3 12:57:51 Problem Notes None recorded. Procedures Surgical History Date Name Laterality Status Provider Name and Address Organization Details Recorded Time Date of Last Mammogram completed Kiesha Kumar [facility] 06/25/2021 10:55:15 Imaging Results Imaging Date Name Status LastModified by Organization Details LastModified Time 06/08/2022 electrocardiogram completed [facility] [employer] [facility], [facility] [address], [place], [address], 07/12/2022 10:59:50 05/04/2022 electrocardiogram completed [facility] [employer] [facility] [address], [place], [address], 07/12/2022 10:59:50 01/19/2023 spirometry testing* completed maria motf [facility] [employer] [facility], [facility] [address], [place], [address], 01/24/2023 19:08:16 01/24/2023 bone density completed [facility] [address], [place], [address], 01/28/2023 19:15:50 04/04/2023 MAMMO, screening, tomosynthesis, bilateral active RUFINO [facility] [address], [place], [address], 04/04/2023 15:12:24 06/06/2023 electrocardiogram completed [email or web address] [facility], [facility] [address], [place], [address], 06/06/2023 17:58:05 Procedure Notes None recorded. Medical Equipment None Reported. Allergies Allergen ID Allergen Name Allergen Category Reaction Reaction Severity Criticality Documentation Date Start Date Code Code System Note Provider Name and Address Organization Details Recorded Time 83914 carvedilo l medicatio n itching Not available Not available 05/12/202273526 RxNorm Not Available [facility] 12:57:51 8713 penicilla mine medicatio n Not available Not available Not available 05/24/2019 7975 RxNorm Clifford thompson [facility] 14:14:19 8714 Substance with sulfonami de structure and antibacte rial mechanism of action (substanc e) medicatio n Not available Not available Not available 05/24/2019 98469 8003 [facility]ED [facility] 14:14:27 8715 Levaquin medicatio n Not available Not available Not available 05/24/2019 82016 2 RxNorm Clifford thompson [facility] 9 14:16:14 Medications Name Sig Start Date Stop Date [...] Updated DateTime 2 165.1 cm 36.3 kg/m2 72137.1 4 g 97.9 [degF] 18 /min 118 /min 156 mm[Hg] 96 mm[Hg] Lilliana Barber [facility] 2 16:07:50 Date Recorded Body height Body mass index (BMI) Body weight Body temperature Respiratory rate Heart rate Systolic blood pressure Diastolic blood pressure Provider Name and Address Organization Details Last Updated DateTime 3 165.1 cm 35.8 kg/m2 25756.3 6 g 98 [degF] 16 /min 94 /min 133 mm[Hg] 84 mm[Hg] Lilliana Freemanaly [facility] 3 10:32:43 Date Recorded Body height Body mass index (BMI) Body weight Body temperature Respiratory rate Heart rate Provider Name and Address Organization Details Last Updated DateTime 3 165.1 cm 36.1 kg/m2 39341.5 4 g 98.2 [degF] 16 /min 99 /min Gómez Dylan [facility] 3 09:29:51 Date Recorded Systolic blood pressure Diastolic blood pressure Provider Name and Address Organization Details Last Updated DateTime 10/19/2022 150 mm[Hg] 90 mm[Hg] Rohith Rizvi MD [address] [facility] [address], [place], [address], [facility] 10/19/2022 10:00:21 Date Recorded Heart rate Systolic blood pressure Diastolic blood pressure Provider Name and Address Organization Details Last Updated DateTime 11/02/2022 91 /min 124 mm[Hg] 82 mm[Hg] Ladi Finn [facility] 11/02/2022 15:34:59 Date Recorded Heart rate Systolic blood pressure Diastolic blood pressure Provider Name and Address Organization Details Last Updated DateTime 11/23/2022 90 /min 137 mm[Hg] 85 mm[Hg] Lory Rogers [facility] 11/23/2022 15:07:53 Date Recorded Body height Heart rate Respiratory rate Body temperature Body mass index (BMI) Body weight Systolic blood pressure Diastolic blood pressure Provider Name and Address Organization Details Last Updated DateTime 3 165.1 cm 94 /min 16 /min 97.5 [degF] 36 kg/m2 73646.7 5 g 126 mm[Hg] 80 mm[Hg] [facility] Ken [facility] 3 12:59:56 Date Recorded Body height Provider Name an d Address Organization Details Last Updated DateTime 06/06/2023 165.1 cm [facility] 06/06/2023 16:45:47 Date Recorded Body temperature Respiratory rate Body mass index (BMI) Body weight Heart rate Systolic blood pressure Diastolic blood pressure Provider Name and Address Organization Details Last Updated DateTime 4 98.8 [degF] 16 /min 35.8 kg/m2 16707.3 6 g 110 /min 154 mm[Hg] 102 mm[Hg] Lilliana Barber [facility] 4 16:53:11 Social History Question Answer Notes LastModified by Organizat ion Details LastModified Time Tobacco Smoking Status Never Smoker Rohith Rizvi MD [address] [place] [address], [place], [address], [facility] 05/24/2019 14:53:31 What Is Your Level Of [...] Others Information not available 05/24/2019 Marital Status Informatio n not available 05/24/2019 What Was [...] formulation 9 completed Rohith Rizvi MD [address], [place], [address], [facility] 02/25/2023 15:04:03 Influenza, split virus, quadrivalent, preservative 4 completed Rohith Rizvi MD [address], [place], [address], [facility] 02/25/2023 15:04:03 Influenza, split virus, quadrivalent, preservative 0 completed Rohith Rizvi MD [address], [place], [address], [place] [facility] 02/25/2023 15:04:03 SARS-COV-2 (COVID-19) vaccine, UNSPECIFIED 1 completed Rohith Rizvi MD [address], [place], [address], [facility] 02/25/2023 15:04:03 SARS-COV-2 (COVID-19) vaccine, UNSPECIFIED 1 completed Rohith Rizvi MD [address], [place], [address], [facility] 02/25/2023 15:04:03 Influenza, split virus, quadrivalent, preservative 1 completed Rohith Rizvi MD [address], [place], [address], [facility] 02/25/2023 15:04:03 COVID-19, mRNA, LNP-S, PF, 30 mcg/0.3 mL dose 1 completed Rohith Rizvi MD [address], [place], [address], [facility] 02/25/2023 15:04:03 Influenza, high-dose, quadrivalent, PF 2 completed Rohith Rizvi MD [address], [place], [address], [facility] 02/25/2023 15:04:03 COVID-19, mRNA, LNP-S, bivalent, PF, 30 mcg/0.3 mL dose 2 completed Rohith Rizvi MD [address], [place], [address], [facility] 02/25/2023 15:04:03 Influenza, adjuvanted, quadrivalent, PF 3 completed Rohith Rizvi MD [address], [place], [address], [facility] 02/25/2023 15:04:03 Influenza, high-dose, trivalent, PF 4 completed Rohith Rizvi MD [address], [place], [address], [facility] 02/11/2024 16:04:30 Past Encounters Encounter ID Performer Location Encounter Start Date Encounter Closed Date Diagnosis/Indication Diagnosis SNOMED-CT Code Diagnosis ICD10 Code Diagnosis Note [id number] Rohith Rizvi MD [facility], [facility] [address] [place] [address] 05/24/2019 14:05:12 05/24/2019 15:08:49 Benign hypertension 83742796 I10 Mixed hyperlipidemia 267 189758 E78.2 Tachycardia 4615245 R00. 0 Asthma 260775920 J45.90 9 Gastroesop hageal reflux disease without esophagitis 946249746 K21.9 Body mass index 30+ - obesity 530102818 Z68.36 Screening mammography 24 026193 Z12.31 Screening for malignant neoplasm of cervix 697275387 Z12.4 Screening for malignant neoplasm of colon 059615884 Z12.11 Active or passive immunization 344328459 Z23 [facility] Menopause 558343008 Z78. 0 Viral screening 22966004 4 Z11.59 [id number] Rohith Rizvi MD [employer] [address] [place] [address] 09/25/2019 10:19:04 09/25/2019 11:01:58 Adult health examination 278709728 Z00.01 Benign hypertension 1072 5009 I10 last EKG 05/24/19 Asthma 252823236 J45.90 9 last PFT 05/24/19 Body mass index 30+ - obesity 255156993 Z68.36 education Gastroesop hageal reflux disease without esophagitis 266469819 K21.9 Mixed hyperlipidemia 267 480197 E78.2 last LDL 06/18/19 Menopause 843166374 Z78. 0 last DEXA 06/07/19 Screening mammography 24 481274 Z12.31 Screening for malignant neoplasm of cervix 599600000 Z12.4 Screening for malignant neoplasm of colon 252755073 Z12.11 Active or passive immunization 769578521 Z23 pt will bring shot records from [facility] [id number] Rohith Rizvi MD [employer] [address] [place] [address] 03/26/2020 10:25:17 03/26/2020 11:51:22 Benign hypertension 70253380 I10 last EKG 05/24/19 Asthma 360104480 J45.90 9 last PFT 05/24/19 Body mass index 30+ - obesity 416942721 Z68.36 education Gastroesop hageal reflux disease without esophagitis 445774244 K21.9 Mixed hyperlipidemia 267 739303 E78.2 last LDL 06/18/19 Osteopenia 914223852 M85 .80 Screening mammography 24 708546 Z12.31 last Mammogram 03/04/20 Screening for malignant neoplasm of cervix 213518767 Z12.4 per pt had PAP 12/31/2019 Screening for malignant neoplasm of colon 079259143 Z12.11 Active or passive immunization 826338326 Z23 up to date [id number] Rohith Rizvi MD [employer], [employer] [address] [place] [address] 09/24/2020 10:47:39 09/24/2020 12:04:23 Adult health examination 546678572 Z00.01 Benign hypertension 1072 5009 I10 last EKG 05/24/19 Asthma 013338866 J45.90 9 last PFT 05/24/19 Body mass index 30+ - obesity 810578948 Z68.36 education Gastroesop hageal reflux disease without esophagitis 066224356 K21.9 stable on low dose PPI Menopause 071132205 Z78. 0 last DEXA 06/07/19 Mixed hyperlipidemia 267 002892 E78.2 last LDL 04/15/20 Osteopenia 966969921 M85 .80 last DEXA 06/07/19 Vitamin D deficiency 347 15185 E55.9 last level 06/06/20 Screening mammography 24 729719 Z12.31 last Mammogram 03/04/20 Screening for malignant neoplasm of cervix 775877077 Z12.4 per pt had PAP 12/31/2019 Screening for malignant neoplasm of colon 955663838 Z12.11 Onychomyco sis of toenails 533580972 B35.1 Active or passive immunization 254433922 Z23 up to date [id number] Rohith Rizvi MD [employer], [employer] [facility] [address] [place] [address] 03/25/2021 09:50:28 03/25/2021 10:47:24 Benign hypertension 33982481 I10 last EKG 09/25/20 Asthma 685703871 J45.90 9 last PFT 09/25/20 Body mass index 30+ - obesity 563876966 Z68.36 education Gastroesop hageal reflux disease without esophagitis 271734445 K21.9 stable on low dose PPI Menopause 072300051 Z78. 0 last DEXA 06/07/19 Mixed hyperlipidemia 267 383698 E78.2 last LDL 04/15/20 Vitamin D deficiency 347 15646 E55.9 last level 06/06/20 Screening mammography 24 587322 Z12.31 last Mammogram 03/04/20 Screening for malignant neoplasm of cervix 212070113 Z12.4 per pt had PAP 12/31/2019 Screening for malignant neoplasm of colon 334614614 Z12.11 decline C scope OR cologaurd Active or passive immunization 738952111 Z23 up to date [id number] Rohith Rizvi MD [employer], [employer] [address] [place] [address] 06/25/2021 10:19:02 06/25/2021 11:20:06 Benign hypertension 10945388 I10 last EKG 09/25/20per pt had optometry 05/2021 Asthma 975919631 J45.90 9 last PFT 09/25/20 Vitamin D deficiency 347 75980 E55.9 last level 06/06/20 Mixed hyperlipidemia 267 677328 E78.2 last LDL 03/26/21 Screening mammography 24 385864 Z12.31 last Mammogram 03/30/21 Screening for malignant neoplasm of cervix 586135335 Z12.4 per pt had PAP 12/31/2019 Screening for malignant neoplasm of colon 686518631 Z12.11 decline C scope OR cologaurd Active or passive immunization 956694137 Z23 up to date [id number] Rohith Rizvi MD [employer] [address] [place] [address] 09/22/2021 11:37:52 09/22/2021 12:43:45 Benign hypertension 50738573 I10 last EKG 09/25/20per pt had optometry 05/2021\on the high side todayresta rt 1/2 tab HCTZ , BP 2 weeks Body mass index 30+ - obesity 229824082 Z68.36 education Asthma 806610249 J45.90 9 last PFT 09/25/20 Gastroesop hageal reflux disease without esophagitis 169859877 K21.9 stable on low dose PPI Menopause 810336009 Z78. 0 last DEXA 06/07/19 Mixed hyperlipidemia 267 636394 E78.2 last LDL 03/26/21 Vitamin D deficiency 347 23972 E55.9 last level 03/26/21 Palpitations 15230619 R0 0.2 better after stopping HCTZdecrea se HCTZ 6.25 Screening mammography 24 982186 Z12.31 last Mammogram 03/30/21 Screening for malignant neoplasm of cervix 451905110 Z12.4 per pt had PAP 12/31/2019 Screening for malignant neoplasm of colon 510734704 Z12.11 decline C scope OR cologaurd Active or passive immunization 601239752 Z23 up to date Long-term drug therapy 298882197 Z79.899 statin [id number] Rohith Rizvi MD [facility] [employer] [address] [place] [address] 01/05/2022 11:00:58 01/05/2022 12:36:02 Adult health examination 820616419 Z00.01 Benign hypertension 1072 5009 I10 last EKG 09/18/21per pt had optometry 05/2021\on the high side todayBP 2 weeks Asthma 169058068 J45.90 9 last PFT 09/25/20 Body mass index 30+ - obesity 438521115 Z68.36 education History of SARS-CoV-2 29 11882600 76769423 Z86.16 12/16/21 Gastroesop hageal reflux disease without esophagitis 123858613 K21.9 stable on low dose PPI Long-term drug therapy 881899485 Z79.899 statin Menopause 066107927 Z78. 0 last DEXA 06/07/19 Mixed hyperlipidemia 267 748055 E78.2 last LDL 12/28/21 Onychomyco sis of toenails 345531944 B35.1 Osteopenia 921238893 M85 .80 last DEXA 06/07/19 Vitamin D deficiency 347 04489 E55.9 last level 03/26/21 Screening mammography 24 860655 Z12.31 last Mammogram 03/30/21 Screening for malignant neoplasm of cervix 379281202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
--- OUTSIDE RECORDS SUMMARY | 2024-10-04 01:22 | XMS_ITS | Clinical Summary ---
Author Organization [facility] Address [address] [place] [address] Care Team Providers Care Mangle Roll Operator Name Role Phone Jackson Greenfield MD Primary Care Provider [phone] Allergies Active Allergy Reactions Criticality Noted Date Comments Carvedilol Itching Low 11/02/2022 Cephalosporins Itching 08/22/2024 Levofloxacin Other (see comment) Low 07/17/2019 Penicillamine Rash Medium 07/17/2019 Sulfa Antibiotics Rash Medium 07/17/2019 Medications ondansetron (ZOFRAN-ODT) 4 MG disintegrating tabletIndications:E pigastric pain Take 1 tablet (4 mg total) by mouth every 8 (eight) hours as needed for Nausea. 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 Gender Identity Not on file Sexual Orientation [...] 9:32 PM Narrative 08/22/2024 9:54 PM CDT [address] [address] INDICATION: Abdominal pain COMPARISON: None TECHNIQUE: CT [...] Procedure Note Seun Alas MD - 08/22/[address] [address] INDICATION: Abdominal pain COMPARISON: None TECHNIQUE: CT [...] URINE CLEAN CATCH 08/22/2024 9:01 PM CDT [facility] COLOR (U) LIGHT YELLOW 08/22/2024 9:15 PM CDT [facility] TRANSPARENCY CLEAR 08/22/2024 9:15 PM CDT [facility] SPECIFIC GRAVITY (U) 1.021 1.001 - 1.030 08/22/2024 9:15 PM CDT [facility] U PH 7.0 5.0 - 9.0 08/22/2024 9:15 PM CDT [facility] LEUKOCYTES (U) 75(A) NEGATIVE 08/22/2024 9:15 PM CDT [facility] NITRITES 1+(A) NEGATIVE 08/22/2024 9:15 PM CDT [facility] PROTEIN RANDOM (U) NEGATIVE <30 MG/DL 08/22/2024 9:15 PM CDT [facility] GLUCOSE (U) NORMAL NORMAL MG/DL 08/22/2024 9:15 PM CDT [facility] KETONES MG/DL (U) 20(A) NEGATIVE MG/DL 08/22/2024 9:15 PM CDT [facility] UROBILINOGEN NORMAL NORMAL MG/DL 08/22/2024 9:15 PM CDT [facility] BILIRUBIN (U) NEGATIVE NEGATIVE MG/DL 08/22/2024 9:15 PM CDT [facility] BLOOD (U) NEGATIVE NEGATIVE 08/22/2024 9:15 PM CDT [facility] WBC/HPF 6(H) <6 /HPF 08/22/2024 9:15 PM CDT [facility] RBC/HPF 7(H) <6 /HPF 08/22/2024 9:15 PM CDT [facility] SQUAMOUS EPITHELIALS RARE /HPF 08/22/2024 9:15 PM CDT [facility] URINE SPECIMEN OBTAINED BY CLEAN CATCH PROCEDURE / Unknown 08/22/2024 9:00 PM CDT us Branden Eng PA-C URINE ORDERABLES Final Resu lt Performing Organization Address City/[facility]/ZIP Co de Phone Number [facility] [address] [place] [address], [place] [phone] * LACTIC ACID W REFLEX (SEPSIS) (08/22/2024 8:53 PM CDT) LACTIC ACID VENOUS 1.1 0.4 - 2.0 MMOL/L 08/22/2024 9:30 PM CDT [facility] 08/22/2024 8:53 PM CDT Branden Eng PA-C LABORATORY Final Resul t Performing Organization Address [facility] Co de Phone Number [facility] [address] [place] [address], [place] [phone] * (ABNORMAL) COMPREHENSIVE METABOLIC PANEL (08/22/2024 8:53 PM CDT) GLUCOSE 128(H) 70 - 99 MG/DL 08/22/2024 9:30 PM CDT [facility] BUN 11 7 - 18 MG/DL 08/22/2024 9:30 PM CDT [facility] CREATININE S/P/B 0.92 0.55 - 1.02 MG/DL 08/22/2024 9:30 PM CDT [facility] SODIUM S/P/B 139 136 - 145 MMOL/L 08/22/2024 9:30 PM CDT [facility] POTASSIUM S/P/B 3.8 3.5 - 5.1 MMOL/L 08/22/2024 9:30 PM CDT [facility] CHLORIDE S/P/B 107 97 - 115 MMOL/L 08/22/2024 9:30 PM CDT [facility] CO2 24.9 21 - 32 MMOL/L 08/22/2024 9:30 PM CDT [facility] CALCIUM S/P/B 10.1 8.5 - 10.1 MG/DL 08/22/2024 9:30 PM CDT [facility] BILIRUBIN TOTAL S/P/B 0.5 0.2 - 1.2 MG/DL 08/22/2024 9:30 PM CDT [facility] Comment: THIS ASSAY IS NOT RECOMMENDED FOR PATIENTS UNDERGOING TREATMENT WITH ELTROMBOPAG DUE TO THE POTENTIAL FOR FALSELY ELEVATED RESULTS. TOTAL PROTEIN S/P/B 7.7 6.4 - 8.2 G/DL 08/22/2024 9:30 PM CDT [facility] ALBUMIN S/P/B 4.1 3.4 - 5.0 G/DL 08/22/2024 9:30 PM CDT [facility] AST 20 15 - 37 U/L 08/22/2024 9:30 PM CDT [facility] ALT 32 14 - 55 U/L 08/22/2024 9:30 PM CDT [facility] ALKALINE PHOSPHATASE S/P/B 101 50 - 136 U/L 08/22/2024 9:30 PM CDT [facility] ANION GAP 7.1 2 - 10 MMOL/L 08/22/2024 9:30 PM CDT [facility] BUN CREATININE RATIO 11.9 6 - 26 08/22/2024 9:30 PM CDT [facility] A/G RATIO 1.1 1.0 - 2.0 RATIO 08/22/2024 9:30 PM T [facility] GFR ESTIMATE 66(L) >90 ML/MIN/1.7 3 M2 08/22/2024 9:30 PM CDT [facility] Comment: NOTE: eGFR is not calculated for patients <18 years of age or gender unknown. This is an estimated GFR calculation using the new CKD EPI creatinine equation without race and so does not require a correction factor for race. This estimated GFR should not be used for calculating drug doses. 08/22/2024 8:53 PM CDT Branden Eng PA-C LABORATORY Final Resul t [facility] [address] [place] [address], [place] [phone] * (ABNORMAL) CBC W/DIFF AUTOMATED (08/22/2024 8:53 PM CDT) WBC 14.84(H) 4.5 - 11.0 x10'3/uL 08/22/2024 9:16 PM CDT [facility] RBC 5.25 4.20 - 5.40 x10'6/uL 08/22/2024 9:16 PM CDT [facility] HGB 15.5 12.0 - 16.0 G/DL 08/22/2024 9:16 PM CDT [facility] HCT 46.2 38.0 - 48.0 % 08/22/2024 9:16 PM CDT [facility] MCV 88.0 81.0 - 99.0 FL 08/22/2024 9:16 PM CDT [facility] MCH 29.5 27.0 - 31.0 PG 08/22/2024 9:16 PM CDT [facility] MCHC 33.5 32.0 - 36.0 G/DL 08/22/2024 9:16 PM CDT [facility] RDW 12.7 11.5 - 14.5 % 08/22/2024 9:16 PM CDT [facility] PLT 339 130 - 400 x10'3/uL 08/22/2024 9:16 PM CDT [facility] MPV 10.0 9.3 - 12.2 FL 08/22/2024 9:16 PM CDT [facility] DIFFERENTIAL TYPE AUTOMATED DIFFERENTIAL 08/22/2024 9:16 PM CDT [facility] NEUTROPHILS % 84.7 % 08/22/2024 9:16 PM CDT [facility] LYMPHOCYTES % 10.4 % 08/22/2024 9:16 PM CDT [facility] MONOCYTES % 3.8 % 08/22/2024 9:16 PM CDT [facility] EOSINOPHILS 0.3 % 08/22/2024 9:16 PM CDT [facility] BASOPHILS 0.5 % 08/22/2024 9:16 PM CDT [facility] IMMATURE GRANS % 0.3 % 08/23/19 9:16 PM CDT [facility] ABS. NEUTROPHILS 12.56(H) 1.80 - 7.70 x10'3/uL 08/22/2024 9:16 PM CDT [facility] ABS. LYMPHOCYTES 1.54 1.00 - 4.80 x10'3/uL 08/22/2024 9:16 PM CDT [facility] ABS. MONOCYTES 0.57 0.24 - 0.86 x10'3/uL 08/22/2024 9:16 PM CDT [facility] ABS. EOSINOPHILS 0.04 0.04 - 0.36 x10'3/uL 08/22/2024 9:16 PM CDT [facility] ABS. BASOPHILS 0.08 0.01 - 0.08 x10'3/uL 08/22/2024 9:16 PM CDT [facility] ABS. IMMATURE GRANULOCYTES 0.05 0.00 - 0.49 x10'3/uL 08/22/2024 9:16 PM CDT [facility] 08/22/2024 8:53 PM CDT Branden Eng PA-C LABORATORY Final Resul t [facility] [address] [place] [address], * LIPASE (08/22/2024 8:53 PM CDT) LIPASE 59 13 - 75 UNITS/L 08/22/2024 9:30 PM CDT [facility] 08/22/2024 8:53 PM CDT Branden Eng PA-C LABORATORY Final Resul t Performing Organization Address [facility] Co de Phone Number [facility] [address] [place] [address], from Last 3 Months Insurance MEDICARE [facility] Care Teams Mangle Roll Operator Relationship Specialty Start Date End Date Jackson Greenfield MD [address] [place] [address] PCP - General FAMILY PRACTICE 08/22/24
--- OUTSIDE RECORDS SUMMARY | 2024-10-04 01:22 | XMS_ITS | Referral Summary ---
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
--- OUTSIDE RECORDS SUMMARY | 2024-10-04 01:22 | XMS_ITS | Clinical Summary ---
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
--- NOTE | 2024-10-04 07:40 | WPDHPUPDATE1 ---
History and Physical Update Update Date/Time: 10/04/24 07:40 History and Physical has been reviewed, including an updated exam of the patient. There are NO changes in the patient's condition. Risks, benefits, and alternatives have been discussed and questions answered. Patient agrees to proceed with procedure.
[2024-10-04 09:26] VITALS: BP 138/81; PULSE 90; RESP 16; TEMP 37.4; O2SAT 97
--- NOTE | 2024-10-04 10:38 | WPDANESEPPF ---
Anes - Initial Pre Proc Eval Procedure: Operation Date: 10/04/24 10:30 Proposed Procedures p Hysteroscopy Dilation and Curettage - Jovani Hernandez MD Date/Time: 10/04/24 10:38 Surgeon: Jovani Hernandez MD Pre Op Diagnosis: endometrial hyperplasia Patient Data Age: 74 Gender: F Height: 1.65 m Weight: 94.3 kg Last Vital Signs Temp 99.4 F 10/04/24 09:26 Pulse 90 10/04/24 09:26 Resp 16 10/04/24 09:26 BP 138/81 10/04/24 09:26 Pulse Ox 97 10/04/24 09:26 O2 Del Method Room Air 10/04/24 09:26 Allergies Allergy/AdvReac Type Severity Reaction Status Date / Time Penicillins Allergy Mild RASH Verified 10/04/24 09:23 Sulfa (Sulfonamide Allergy Mild RASH Verified 10/04/24 09:23 Antibiotics) cephalexin (From Keflex) Allergy Unknown Rash Verified 10/04/24 09:23 levofloxacin AdvReac Severe JUST FELT Verified 10/04/24 09:23 AWFUL AFTER TAKING IT carvedilol AdvReac Itching Verified 10/04/24 09:23 Home Medications ?Medication ?Instructions ?Recorded ?Confirmed ?Type atorvastatin 10 mg tablet 10 mg PO DAILY 01/20/22 09/18/24 History fluticasone furoate 100 1 inh inhalation DAILY PRN wheezing 01/20/22 09/18/24 History mcg-vilanterol 25 mcg/dose inhalation powder (Breo Ellipta) montelukast 10 mg tablet 10 mg PO DAILY 01/20/22 10/04/24 History aspirin 81 mg tablet,delayed 81 mg PO DAILY 09/13/24 10/04/24 History release hydrochlorothiazide 12.5 mg tablet 12.5 mg PO DAILY 09/13/24 09/18/24 History metoprolol succinate 25 mg 25 mg PO DAILY 09/13/24 10/04/24 History tablet,extended release 24 hr omeprazole 20 mg capsule,delayed 20 mg PO BID 09/13/24 10/04/24 History release irbesartan 300 mg tablet 300 mg PO .COMPLEX HTN 09/18/24 10/04/24 History multivitamin 1 tablet PO DAILY 09/18/24 10/04/24 History Patient hx anesthesia problems: none Family hx anesthesia problems: none Results Review: All pre-operative results and documents have been reviewed as part of the pre-operative evaluation. [facility] Past Medical History Medical History Screening mammogram, encounter for Asthma Encounter for Papanicolaou smear for cervical cancer screening High cholesterol History of hypertension GERD (gastroesophageal reflux disease) Surgical History Surgical History Delivery by section x 2 History of hysteroscopy (11/21/02) Office hysteroscopy, endometrial bx - enlarged uterus - secretory endometrium History of hysteroscopy (11/23/06) Diagnostic hysteroscopy, polypectomy,uterine curettings - PMB, enlarged uterus - Endometrial polyp, Benign endometrium H/O tubal ligation (~1982) Social History Social History Smoking status: Never smoker Second hand tobacco smoke exposure: No Alcohol intake: never Substance use: never Substance use type: does not use Current Housing: Decline to Answer Concerned About Future Housing: Decline to Answer Difficulty Paying Gas/Electric Bills: Decline to Answer Difficulty Paying for Meds: Decline to Answer Currently Unemployed: Decline to Answer Education: Decline to Answer Difficulty w/ Childcare or Family Care: Decline to Answer Living arrangements: with family Additional living arrangements comments: Occupation/Education: retired Gender identity (if verbalized by the patient): Female Sexual Orientation (if Verbalized by the Patient): Straight or Heterosexual Spiritual care concerns: No Anes - Eval Final PreProcedure Day of Procedure 10/04/24 10:38 Patient weight: obese Lungs: normal air movement Airway: Mallampati scale class II Neurological: alert and oriented Last oral intake: >/= 8 hours ASA classification: III Emergent: no Anesthetic plan: proceed Anesthesia type and monitoring: general GIVS and standard monitoring Results Review: All pre-operative results and documents have been reviewed as part of the pre-operative evaluation. HTN, hyperlipidemia, asthma, BMI 34, GERD w HH (improved on twice daily ppi). Informed Consent: The patient's anesthetic plan and its attendant risks and benefits were discussed with the patient/family/POA. Questions were solicited and answers provided to the satisfaction of the patient/family/POA.
--- NOTE | 2024-10-04 11:16 | W.PM.PROC2 ---
Procedure Note - Detailed Date of Procedure 10/04/24 Pre-op Diagnosis 1. Endometrial hyperplasia Post-op Diagnosis Same (2. Endometrial polyp) Procedure Performed 1. Hysteroscopic exam 2. Hysteroscopic polypectomy with uterine curettings Surgeon Jovani Hernandez MD Anesthesia MAC Findings Atrophic endometrial cavity with small polyp noted Description of Procedure Patient prepped and draped usual manner for this procedure. Cervix dilated to allow the hysteroscope to be placed. This did reveal small polyp on the left fundal area. This was removed without difficulty and sampling from denial management representative segments throughout the endometrial cavity though tissue was very atrophic. Once this was undertaken the procedure was considered terminated there was no significant bleeding. Estimated Blood Loss 10 Drains No Packing No Pathology Yes Complications No immediate complications Condition Stable Disposition PACU [facility] Billing Surgery - Charge Forward: Surgery Billing
[2024-10-04 11:22] VITALS: BP 125/82; PULSE 74; RESP 12; O2SAT 98
[2024-10-04] MEDS: LACTATED RINGERS 1,000 ML 30 ML IV CONT (11:22)
[2024-10-04 11:52] VITALS: BP 140/83; PULSE 79
== END 2024-10-04 12:20 | disposition home or self-care (01) ==
PROVIDERS: PCP Family Medicine; Visit Provider Obstetrics & Gynecology
PROC: 0U5B8ZZ Destruction of Endometrium, Via Natural or Artificial Opening Endoscopic (ICD-10-PCS; CPT 58563; principal; 2024-10-04 10:30)
DX: N84.0 Polyp of corpus uteri (principal); E66.9 Obesity, unspecified; Z68.34 Body mass index [BMI] 34.0-34.9, adult
CPT/HCPCS: 58558; 88305; J1100; J2003; J2405; J2704; J3010; J7120